=== PATIENT | female | born 1975 | race Caucasian/White ===

== ENCOUNTER 2016-03-21 00:06 | Emergency (ER) | payer MEDICARE, OTHER ==
[~2016-03-21] VITALS: Ht 170.2 cm; Wt 55.0 kg
[~2016-03-21 00:06] MED LIST: DIFL150T PO; PERC10TA27 PO
[2016-03-21] MEDS ORDERED: TETANUS/DIPHTHERIA TOXOID ADULT 0.5 ML VIAL IM ONE (00:15)
[2016-03-21] MEDS ORDERED: oxyCODONE/ACETAMINOPHEN 5 MG/325 MG TAB PO ONE (00:15)
[2016-03-21] MEDS ORDERED: SODIUM CHLORIDE 0.9% FLUSH 5 ML FLUSH IVF PRN (00:15)
[2016-03-21 00:20] VITALS: BP 126/74; PULSE 105; RESP 24; TEMP 98.8; O2SAT 97
[2016-03-21] MEDS ORDERED: NEUR800T PO (00:20)
[2016-03-21] MEDS ORDERED: PROP60TA PO (00:20)
[2016-03-21 00:34] LABS: AUTOMATED NEUTROPHIL # 7.4 TH/MM3 (1.8-7.7); BASOPHIL # 0.1 TH/MM3 (0-0.2); BASOPHIL % 0.6 % (0.0-2.0); EOSINOPHIL # 0.3 TH/MM3 (0-0.4); EOSINOPHIL % 3.2 % (0.0-4.0); HEMATOCRIT 38.9 % (35.0-46.0); HEMO FLAGS DIFF FINAL; LYMPH % 21.1 % (9.0-44.0); LYMPHOCYTE # 2.3 TH/MM3 (1.0-4.8); MEAN CELL VOLUME 98.5 FL (80.0-100.0); MEAN CORPUSCULAR HEMOGLOBIN 34.5 PG (27.0-34.0); MONO % 7.3 % (0.0-8.0); NEUT % 67.8 % (16.0-70.0); PLATELET COUNT 368 TH/MM3 (150-450); RED BLOOD COUNT 3.95 MIL/MM3 (4.00-5.30); RED CELL DISTRIBUTION WIDTH 13.1 % (11.6-17.2); WHITE BLOOD COUNT 10.9 TH/MM3 (4.0-11.0)
[2016-03-21 00:50] LABS: BICARBONATE 24.6 MEQ/L (21.0-32.0); POTASSIUM 3.7 MEQ/L (3.5-5.1)
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
[2016-03-21 02:31] VITALS: BP 128/79
== END 2016-03-21 05:51 | disposition home or self-care (01) ==
LOC: NEPC 00:06 → NEPF 05:51
DX: Z04.41 Encounter for examination and observation following alleged adult rape (principal); S01.412A Laceration without foreign body of left cheek and temporomandibular area, initial encounter; F10.120 Alcohol abuse with intoxication, uncomplicated; J45.909 Unspecified asthma, uncomplicated; Y04.2XXA Assault by strike against or bumped into by another person, initial encounter; Y09 Assault by unspecified means; Z23 Encounter for immunization; Z72.0 Tobacco use
CPT/HCPCS: 12011; 70450; 70486; 80048; 80320; 85025; 90471; 90714

== ENCOUNTER 2016-03-21 16:25 | Emergency (ER) | payer MEDICARE, OTHER ==
[~2016-03-21 16:25] MED LIST changes: +NEUR800T PO; +PROP60TA PO
[2016-03-21 16:49] VITALS: BP 118/77; PULSE 77; RESP 14; TEMP 99; O2SAT 98
[2016-03-21] MEDS ORDERED: ONDANSETRON ODT 4 MG TAB PO ONE (17:15)
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
[2016-03-21 19:45] VITALS: BP 119/61; PULSE 70; RESP 16; O2SAT 98
[2016-03-21] MEDS ORDERED: ACETAMINOPHEN 500 MG CPLT PO ONE (19:45)
[2016-03-21 19:59] LABS: AUTOMATED NEUTROPHIL # 2.8 TH/MM3 (1.8-7.7); BASOPHIL % 0.6 % (0.0-2.0); EOSINOPHIL # 0.1 TH/MM3 (0-0.4); EOSINOPHIL % 1.9 % (0.0-4.0); HEMATOCRIT 41.3 % (35.0-46.0); HEMO FLAGS DIFF FINAL; LYMPH % 30.9 % (9.0-44.0); LYMPHOCYTE # 1.5 TH/MM3 (1.0-4.8); MEAN CELL VOLUME 99.1 FL (80.0-100.0); MEAN CORPUSCULAR HEMOGLOBIN 33.3 PG (27.0-34.0); MEAN CORPUSCULAR HGB CONC 33.6 % (32.0-36.0); MONO % 12.6 % (0.0-8.0); PLATELET COUNT 378 TH/MM3 (150-450); RED BLOOD COUNT 4.16 MIL/MM3 (4.00-5.30)
[2016-03-21] MEDS ORDERED: LEVONORGESTREL (EMERGENCY OC) 1.5 MG TAB ONE (22:56)
[2016-03-21] MEDS ORDERED: DOXYCYCLINE HYCLATE 100 MG TAB ONE (22:56)
[2016-03-21] MEDS ORDERED: AZITHROMYCIN 250 MG TAB ONE (22:57)
[2016-03-21] MEDS ORDERED: cefTRIAXone 250 MG VIAL ONE (22:57)
[2016-03-21] MEDS ORDERED: LIDOCAINE HCL 1% PF 2 ML VIAL ONE (22:59)
[2016-03-21 23:15] VITALS: BP 94/64; PULSE 70; RESP 14; O2SAT 98
--- NOTE | 2016-03-22 18:21 | EKG ---
Date Performed: 03/21/2016 Time Performed: 17:05:12 PTAGE: 40 years EKG: Sinus rhythm Possible septal infarct - age undetermined Abnormal ECG PREVIOUS TRACING : 05/03/2015 11.43 DOCTOR: Rogelio Lyle Interpretating Date/Time 03/22/2016 18:21:11
== END 2016-03-21 23:38 | disposition home or self-care (01) ==
LOC: PHED 16:25
DX: Z04.41 Encounter for examination and observation following alleged adult rape (principal); R94.31 Abnormal electrocardiogram [ECG] [EKG]; R07.9 Chest pain, unspecified; I50.9 Heart failure, unspecified; Z95.0 Presence of cardiac pacemaker; I25.2 Old myocardial infarction; S01.412A Laceration without foreign body of left cheek and temporomandibular area, initial encounter; F10.120 Alcohol abuse with intoxication, uncomplicated; J45.909 Unspecified asthma, uncomplicated; Y04.2XXA Assault by strike against or bumped into by another person, initial encounter; Y09 Assault by unspecified means; Z23 Encounter for immunization; Z72.0 Tobacco use
CPT/HCPCS: 12011; 70450; 70486; 71010; 80048; 80320; 85025; 90471; 90714; 93005; 99285; J0696

== ENCOUNTER 2016-07-21 19:12 | Emergency (ER) | payer MEDICARE, OTHER ==
[~2016-07-21 19:12] MED LIST changes: -DIFL150T PO; -PERC10TA27 PO
[2016-07-21 19:13] VITALS: BP 122/83; PULSE 112; RESP 20; TEMP 98.9; O2SAT 97
--- NOTE | 2016-07-21 19:18 | PD ---
Physical Exam Date Seen by Provider: Jul 21, 2016 Time Seen by Provider: 19:52 Data Data Last Documented VS Vital Signs Date Time Temp Pulse Resp B/P Pulse Ox O2 Delivery O2 Flow Rate FiO2 07/21/16 19:13 98.9 112 20 122/83 97 Room Air [facility] Supervised Visit with ED: No Narrative Course 40 YO F with complaint of 10/10 abdominal pain and vaginal bleeding x ~24 hours. Denies N/V. States "feels like when I had an ectopic." Vitals reviewed. Awaiting bed placement. Desi Mcleod Jul 21, 2016 19:18
[2016-07-21 20:55] VITALS: BP 116/79; PULSE 83; RESP 18; TEMP 99.1; O2SAT 100
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
[2016-07-21] MEDS ORDERED: ONDANSETRON HCL 4 MG/2 ML VIAL IVP ONE (21:00)
[2016-07-21] MEDS ORDERED: SODIUM CHLORIDE 0.9% FLUSH 10 ML FLUSH IV FLUSH PRN (21:00)
[2016-07-21] MEDS ORDERED: MORPHINE SULFATE 4 MG/ML INJ IV PUSH ONE (21:00)
[2016-07-21] MEDS ORDERED: SODIUM CHLORID 0.9% 500 ML INJ 500 ML IV ONE ×2 (21:00→23:45)
[2016-07-21 21:32] LABS: AUTOMATED NEUTROPHIL # 12.5 TH/MM3 (1.8-7.7); BASOPHIL # 0.1 TH/MM3 (0-0.2); BASOPHIL % 0.7 % (0.0-2.0); EOSINOPHIL # 0.4 TH/MM3 (0-0.4); EOSINOPHIL % 2.6 % (0.0-4.0); HEMO FLAGS DIFF FINAL; LYMPH % 12.7 % (9.0-44.0); MEAN CELL VOLUME 97.3 FL (80.0-100.0); MEAN CORPUSCULAR HEMOGLOBIN 34.3 PG (27.0-34.0); MEAN CORPUSCULAR HGB CONC 35.2 % (32.0-36.0); MONO % 6.6 % (0.0-8.0); NEUT % 77.4 % (16.0-70.0); PLATELET COUNT 486 TH/MM3 (150-450); RED BLOOD COUNT 4.73 MIL/MM3 (4.00-5.30); RED CELL DISTRIBUTION WIDTH 13.3 % (11.6-17.2); WHITE BLOOD COUNT 16.1 TH/MM3 (4.0-11.0)
[2016-07-21 21:41] LABS: BLOOD, URINE NEG (NEG); COMMENT (UR) CULT NOT INDICATED; CULTURE IF INDICATED CULT NOT INDICATED; GLUCOSE,URINE NEG (NEG); KETONE, URINE NEG (NEG); MUCUS URINE MANY /lpf (OCC); NITRITE,URINE NEG (NEG); PH, URINE 5.5 (5.0-8.5); URINE COLOR YELLOW (YELLW/STRAW)
[2016-07-21] MEDS ORDERED: HYDROmorphone HCL PF 1 MG/ML VIAL IV PUSH ONE ×2 (21:45→23:30)
[2016-07-21 21:49] LABS: ANION GAP 9 MEQ/L (5-15); AST (GOT) 14 U/L (15-37); BICARBONATE 26.5 MEQ/L (21.0-32.0); BLOOD UREA NITROGEN 14 MG/DL (7-18); CHLORIDE 103 MEQ/L (98-107); GLOMERULAR FILTRATION RATE 66 ML/MIN (>89); SODIUM (NA) 138 MEQ/L (136-145)
[2016-07-21 21:57] LABS: ALKALINE PHOSPHATASE 85 U/L (45-117); ALT (GPT) 18 U/L (10-53); TOTAL BILIRUBIN ADULT 0.7 MG/DL (0.2-1.0)
--- NOTE | 2016-07-21 21:57 | PD ---
Physical Exam Narrative I, Dr. Duenas, have reviewed the advance practice practitioner's documentation and am in agreement, met with the patient face to face, made the diagnosis, and the medical decision making was done by me. *My assessment and Findings: Chronic abdominal pain vs. gastroparesis vs. diverticulitis vs. pancreatitis 40yo F with abdominal pain since yesterday. Pt has multiple medical problems and has frequent GI follow up. Abdominal exam showed diffuse tenderness but more on left lower abdomen. Urine negative. Labs reviewed, leukocytosis at 16.1. Lipase normal. UA showed no leukocyte or nitrite. Pt initially tachycardic at 112bpm but heart rate is now 83bpm. Pt given morphine 4mg IV which helped with pain but caused her to be nauseous so zofran 4mg IV given. Pt is still in a lot of pain so dilaudid 0.5mg x2 IV given. BP was low after morphine so NS IVF given. Pt reevaluated at bedside and states the dilaudid resolved the pain. Pt is nontoxic appearing and denies any fever or nausea or vomiting. Pt is lying comfortably in bed. Pt has chronic abdominal issues and has good outpatient follow up. CTa/p showed mild biliary ductal dilatation post previous cholecystectomy. This may be reservoir affect. Mild basilar lung atelectasis or scarring. Pt follows with Dr. Reddy from GI and can follow up with him as outpatient. Pt tolerating PO. Return precautions given. Data Data Last Documented VS Vital Signs Date Time Temp Pulse Resp B/P Pulse Ox O2 Delivery O2 Flow Rate FiO2 07/22/16 00:18 69 18 100/86 98 Room Air 07/21/16 20:55 99.1 Orders Complete Blood Count With Diff (07/21/16 20:49) Comprehensive Metabolic Panel (07/21/16 20:49) Lipase (07/21/16 20:49) Urinalysis - C+S If Indicated (07/21/16 20:49) Ct Abd/Pel W Iv Contrast(Rout) (07/21/16 20:49) Iv Access Insert/Monitor (07/21/16 20:49) Ecg Monitoring (07/21/16 20:49) Oximetry (07/21/16 20:49) Morphine Inj (Morphine Inj) (07/21/16 21:00) Ondansetron Inj (Zofran Inj) (07/21/16 21:00) Sodium Chloride 0.9% Flush (Ns Flush) (07/21/16 21:00) Sodium Chlorid 0.9% 500 Ml Inj (Ns 500 M (07/21/16 21:00) Ed Urine Pregnancytest Poc (07/21/16 20:49) Hydromorphone Pf Inj (Dilaudid Pf Inj) (07/21/16 21:45) Iohexol 350 Inj (Omnipaque 350 Inj) (07/21/16 22:38) Hydromorphone Pf Inj (Dilaudid Pf Inj) (07/21/16 23:30) Sodium Chlorid 0.9% 500 Ml Inj (Ns 500 M (07/21/16 23:45) Labs Laboratory Tests Test 07/21/16 07/21/16 20:40 20:57 Urine Color YELLOW Urine Turbidity CLEAR Urine pH 5.5 Urine Specific [place] 1.031 Urine Protein TRACE mg/dL Urine Glucose (UA) NEG mg/dL Urine Ketones NEG mg/dL Urine Occult Blood NEG Urine Nitrite NEG Urine Bilirubin NEG Urine Urobilinogen LESS THAN 2.0 MG/DL Urine Leukocyte Esterase NEG Urine RBC LESS THAN 1 /hpf Urine WBC LESS THAN 1 /hpf Urine Mucus MANY /lpf Microscopic Urinalysis Comment CULT NOT INDICATED White Blood Count 16.1 TH/MM3 Red Blood Count 4.73 MIL/MM3 Hemoglobin 16.2 GM/DL Hematocrit 46.0 % Mean Corpuscular Volume 97.3 FL Mean Corpuscular Hemoglobin 34.3 PG Mean Corpuscular Hemoglobin 35.2 % Concent Red Cell Distribution Width 13.3 % Platelet Count 486 TH/MM3 Mean Platelet Volume 7.2 FL Neutrophils (%) (Auto) 77.4 % Lymphocytes (%) (Auto) 12.7 % Monocytes (%) (Auto) 6.6 % Eosinophils (%) (Auto) 2.6 % Basophils (%) (Auto) 0.7 % Neutrophils # (Auto) 12.5 TH/MM3 Lymphocytes # (Auto) 2.0 TH/MM3 Monocytes # (Auto) 1.1 TH/MM3 Eosinophils # (Auto) 0.4 TH/MM3 Basophils # (Auto) 0.1 TH/MM3 CBC Comment DIFF FINAL Differential Comment Sodium Level 138 MEQ/L Potassium Level 4.0 MEQ/L Chloride Level 103 MEQ/L Carbon Dioxide Level 26.5 MEQ/L Anion Gap 9 MEQ/L Blood Urea Nitrogen 14 MG/DL Creatinine 0.93 MG/DL Estimat Glomerular Filtration 66 ML/MIN Rate Random Glucose 61 MG/DL Calcium Level 9.2 MG/DL Total Bilirubin 0.7 MG/DL Aspartate Amino Transf 14 U/L (AST/SGOT) Alanine Aminotransferase 18 U/L (ALT/SGPT) Alkaline Phosphatase 85 U/L Total Protein 8.1 GM/DL Albumin 4.3 GM/DL Lipase 259 U/L [facility] Supervised Visit with ED: Yes Diagnosis Primary Impression: Abdominal pain Qualified Code: R10.84 - Generalized abdominal pain Patient Instructions: General Instructions Departure Forms: Tests/Procedures Additional Instruction: Please follow up with your GI physician in 1-2 days. Return to the ED if symptoms worsen. Med/Other Pt SpecificInfo: Prescription(s) given Scripts Acetaminophen (Tylenol)325 Mg [id number] Mg PO Q6H PRN (PAIN SCALE 1 TO 4) #20 TAB Ref 0 Prov:Rut Duenas DO 07/21/16 Disposition: 01 DISCHARGE HOME Condition: Stable Rut Duenas DO Jul 21, 2016 21:57
[2016-07-21 22:18] VITALS: BP 97/59; PULSE 69; RESP 18; O2SAT 99
[2016-07-21] MEDS ORDERED: IOHEXOL 350 MG/ML 10 ML VIAL (for RAD DIAG) IV ONE (22:38)
--- NOTE | 2016-07-21 22:54 | RADRPT ---
EXAM DATE/TIME: 07/21/2016 22:35 [facility] COMPARISON: No previous studies available for comparison. INDICATIONS : Epigastric pain with vomitting. IV CONTRAST: 80 cc Omnipaque 350 (iohexol) IV ORAL CONTRAST: No oral contrast ingested. RADIATION DOSE: 4.73 CTDIvol (mGy) MEDICAL HISTORY : Pancreatitis. Gastroparesis. hernia repair SURGICAL HISTORY : Cholecystectomy. Appendectomy.Pacemaker. ENCOUNTER: Initial ACUITY: 1 day PAIN SCALE: 10/10 LOCATION: upper quadrant TECHNIQUE: Volumetric scanning of the abdomen and pelvis was performed. Using automated exposure control and ad justment of the mA and/or kV according to patient size, radiation dose was kept as low as reasonably achievable to obtain optimal diagnostic quality images. FINDINGS: LOWER LUNGS: Mild scarring or atelectasis in the posterior lung bases. LIVER: Mild intra-and extrahepatic biliary ductal dilatation post previous cholecystectomy with common duct diameter slightly exceeding 1 cm. No evidence of focal liver mass.SPLEEN: Normal size without lesion. PANCREAS: Slight prominence of the pancreatic duct. No evidence of pancreatic parenchymal mass. KIDNEYS: Normal in size and shape. There is no mass, stone or hydronephrosis. ADRENAL GLANDS: Within normal limits. VASCULAR: There is no aortic aneurysm. Left gonadal vein varices. BOWEL/MESENTERY: The stomach, small bowel, and colon demonstrate no acute abnormality. There is no free intraperitone al air or fluid. ABDOMINAL WALL: Within normal limits. RETROPERITONEUM: There is no lymphadenopathy. BLADDER: No wall thickening or mass. REPRODUCTIVE: Within normal limits. INGUINAL: There is no lymphadenopathy or hernia. MUSCULOSKELETAL: Within normal limits for patient age. CONCLUSION: Mild biliary ductal dilatation post previous cholecystectomy. This may be reservoir affect. Mild basilar lung atelectasis or scarring. Nikolas Delgado MD on July 21, 2016 at 22:49 Board Certified Radiologist. This report was verified electronically.
[2016-07-21] MEDS ORDERED: TYLE325T PO (23:22)
[2016-07-21 23:36] VITALS: BP 90/58; PULSE 69; RESP 18; O2SAT 100
[2016-07-22 00:18] VITALS: BP 100/86; PULSE 69; RESP 18; O2SAT 98
== END 2016-07-22 00:39 | disposition home or self-care (01) ==
LOC: NEPE 19:12
DX: R10.84 Generalized abdominal pain (principal); R00.0 Tachycardia, unspecified; F17.210 Nicotine dependence, cigarettes, uncomplicated; M79.7 Fibromyalgia; Z90.49 Acquired absence of other specified parts of digestive tract
CPT/HCPCS: 74177; 80053; 81001; 83690; 84703; 85025; 96374; 96375; 96376; 99285; J1170; J2270; J2405; J7040; Q9967

== ENCOUNTER 2017-02-22 12:06 | Inpatient (IN) | payer MEDICARE, OTHER ==
[~2017-02-22] VITALS: Ht 160 cm; Wt 50.0 kg
[2017-02-22] VITALS (8 sets, daily range): BP systolic 90–102; BP diastolic 58–65; PULSE 73–90; RESP 16; TEMP 98.6–98.9; O2SAT 99
[~2017-02-22 12:06] MED LIST changes: +TYLE325T PO
[2017-02-22] MEDS ORDERED: SODIUM CHLOR 0.9% 1000 ML INJ 1,000 ML IV SCH (13:00)
[2017-02-22] MEDS ORDERED: ONDANSETRON HCL 4 MG/2 ML VIAL IV PUSH ONE (13:00)
--- NOTE | 2017-02-22 13:05 | PD ---
HPI Chief Complaint: Abdominal Pain Time Seen by Provider: 12:43 Travel History International Travel<30 days: No Contact w/Intl Traveler<30days: No Traveled to known affect area: No History of Present Illness HPI This 41-year-old female is complaining of abdominal pain. She says he been having the pain for several days. It was worse this morning. He has had some intermittent vomiting. She says is February 05 she had pain and has a knot believes she was disimpacted in the hospital. She subsequently vomited blood and went to a hospital again and ended up having surgery. She believes she was released from the hospital 4 days ago. She has a pacemaker in place. She has history of ectopic . She says she has not and has not been sexually active for some time. She has noted that her left leg is swollen and she is having some left lower quadrant pain. She has a history of diverticular lites. 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") Psychiatric: Yes (PANIC ATTACKS) Immunizations Current: No Migraines: Yes Myocardial Infarction: Yes (AGE 17) Pancreatitis: Yes Thyroid Disease: Yes Tetanus Vaccination: < 5 Years Influenza Vaccination: No ?: Not LMP: 1 week ago : 9 Para: 7 : 2 Ectopic : Yes Dilation and Curettage (D&C): Yes Tubal Ligation: Yes (2006) Past Surgical History Abdominal Surgery: Yes (R HERNIA REPAIR 08/08/07, bowel blockage 02/06/17, repair of adhesions ) Appendectomy: Yes Section: Yes (X1) Cholecystectomy: Yes (2009) Pacemaker: Yes (pt states have pacemaker) Other Surgery: Yes (RIGHT HERNIA REPAIR, LYMPH NODE REMOVED) Family History Family Myocardial Infarction: Yes (BROTHER AT THE AGE OF 17) Social History Alcohol Use: Yes (RARE ) Tobacco Use: Yes (now 2 cigs per day states hx of 2 ppd for 20+yrs) Substance Use: No Allergies-Medications (Allergen,Severity, Reaction): Coded Allergies: Sulfa (Sulfonamide Antibiotics) (Unverified Allergy, Severe, rash, 02/22/17 ) diclofenac (Unverified Allergy, Severe, 02/22/17) pancreatitis etodolac (Unverified Allergy, Severe, 02/22/17) pancreatitis flurbiprofen (Unverified Allergy, Severe, 02/22/17) pancreatitis ibuprofen (Unverified Allergy, Severe, 02/22/17) pancreatitis indomethacin (Unverified Allergy, Severe, 02/22/17) pancreatitis ketoprofen (Unverified Allergy, Severe, 02/22/17) pancreatitis ketorolac (Unverified Allergy, Severe, 02/22/17) pancreatitis naproxen (Unverified Allergy, Severe, 02/22/17) pancreatitis oxaprozin (Unverified Allergy, Severe, 02/22/17) pancreatitis penicillin G (Unverified Allergy, Severe, sob, 02/22/17) NSAIDS (Non-Steroidal Anti-Inflamma (Verified Allergy, Intermediate, STATE PANCREATITIS, 02/22/17) Reported Meds & Prescriptions Reported Meds & Active Scripts Active Tylenol (Acetaminophen) 325 Mg Tab 650 Mg PO Q6H PRN Reported Ambien (Zolpidem Tartrate) 10 Mg Tab 10 Mg PO HS PRN Oxycodone (Oxycodone HCl) 10 Mg Tab 10 Mg PO [id number] PRN Midodrine 10 Mg Tab 10 Mg PO TID PRN Topamax (Topiramate) 100 Mg Tab 100 Mg PO BID Neurontin (Gabapentin) 800 Mg Tab 800 Mg PO QID Propranolol (Propranolol HCl) 60 Mg Tab 60 Mg PO BID Review of Systems General / Constitutional: Positive: Fever, Chills Eyes: No: Diploplia, Blurred Vision HENT: No: Headaches, Vertigo Cardiovascular: No: Chest Pain or Discomfort, Palpitations Respiratory: No: Cough, Shortness of Breath Gastrointestinal: Positive: Nausea, Vomiting, Diarrhea, Abdominal Pain Genitourinary: No: Urgency, Frequency Musculoskeletal: No: Arthralgias Skin: No Rash, No Itching Neurologic: No: Weakness Physical Exam Narrative GENERAL: Thin female complaining of pain SKIN: Focused skin assessment warm/dry. HEAD: Atraumatic. Normocephalic. EYES: Pupils equal and round. No scleral icterus. No injection or drainage. ENT: No nasal bleeding or discharge. Mucous membranes pink and moist. NECK: Trachea midline. No JVD. CARDIOVASCULAR: Regular rate and rhythm. No murmur appreciated. RESPIRATORY: No accessory muscle use. Clear to auscultation. Breath sounds equal bilaterally. GASTROINTESTINAL: Abdomen distended. Bowel sounds are diminished. sHe is diffusely tender. I don't feel any discrete masses MUSCULOSKELETAL: There is some soft tissue swelling of the left leg. She is tender in the inguinal area on the left NEUROLOGICAL: Awake and alert. No obvious cranial nerve deficits. Motor grossly within normal limits. Normal speech. PSYCHIATRIC: Patient is extremely anxious and agitated at times Data Data Last Documented VS Vital Signs Date Time Temp Pulse Resp B/P (MAP) Pulse Ox O2 Delivery O2 Flow Rate FiO2 02/22/17 15:33 16 02/22/17 15:30 80 100/59 (73) 99 Room Air 02/22/17 12:31 98.9 Orders Orders Complete Blood Count With Diff (02/22/17 12:52) Comprehensive Metabolic Panel (02/22/17 12:52) Lipase (02/22/17 12:52) Lactic Acid (02/22/17 12:52) Urinalysis - C+S If Indicated (02/22/17 12:52) Ct Abd/Pel W Iv Contrast(Rout) (02/22/17 12:52) Iv Access Insert/Monitor (02/22/17 12:52) Ecg Monitoring (02/22/17 12:52) Oximetry (02/22/17 12:52) Sodium Chloride 0.9% Flush (Ns Flush) (02/22/17 13:00) Chest, Single Ap (02/22/17 12:52) Sodium Chlor 0.9% 1000 Ml Inj (Ns 1000 M (02/22/17 13:00) Ondansetron Inj (Zofran Inj) (02/22/17 13:00) Ed Urine Pregnancytest Poc (02/22/17 12:52) Us Leg Venous Doppler (02/22/17 13:00) Morphine Inj (Morphine Inj) (02/22/17 13:15) Morphine Inj (Morphine Inj) (02/22/17 13:15) Morphine Inj (Morphine Inj) (02/22/17 14:15) Morphine Inj (Morphine Inj) (02/22/17 14:15) Iohexol 350 Inj (Omnipaque 350 Inj) (02/22/17 14:51) Cefepime Inj (Maxipime Inj) (02/22/17 15:00) Blood Culture (02/22/17 15:06) Place Ng Tube To Low Intermit (02/22/17 15:16) Ns + Kcl 20 Meq Inj (Ns + Kcl 20 Meq Inj (02/22/17 15:30) Lorazepam Inj (Ativan Inj) (02/22/17 15:30) Consult General Surgery (02/22/17 ) Admit Order (Ed Use Only) (02/22/17 15:43) Labs Laboratory Tests Test 02/22/17 13:00 02/22/17 13:55 White Blood Count 17.3 TH/MM3 Red Blood Count 4.29 MIL/MM3 Hemoglobin 13.6 GM/DL Hematocrit 42.1 % Mean Corpuscular Volume 98.1 FL Mean Corpuscular Hemoglobin 31.8 PG Mean Corpuscular Hemoglobin Concent 32.4 % Red Cell Distribution Width 13.7 % Platelet Count 785 TH/MM3 Mean Platelet Volume 7.0 FL Neutrophils (%) (Auto) 82.5 % Lymphocytes (%) (Auto) 10.6 % Monocytes (%) (Auto) 5.6 % Eosinophils (%) (Auto) 0.7 % Basophils (%) (Auto) 0.6 % Neutrophils # (Auto) 14.3 TH/MM3 Lymphocytes # (Auto) 1.8 TH/MM3 Monocytes # (Auto) 1.0 TH/MM3 Eosinophils # (Auto) 0.1 TH/MM3 Basophils # (Auto) 0.1 TH/MM3 CBC Comment AUTO DIFF Differential Comment AUTO DIFF CONFIRMED Platelet Estimate HIGH Platelet Morphology Comment HYPOGRAN Blood Urea Nitrogen 5 MG/DL Creatinine 0.46 MG/DL Random Glucose 76 MG/DL Total Protein 7.0 GM/DL Albumin 3.0 GM/DL Calcium Level 8.1 MG/DL Alkaline Phosphatase 79 U/L Aspartate Amino Transf (AST/SGOT) 25 U/L Alanine Aminotransferase (ALT/SGPT) 27 U/L Total Bilirubin 0.6 MG/DL Sodium Level 139 MEQ/L Potassium Level 3.5 MEQ/L Chloride Level 106 MEQ/L Carbon Dioxide Level 23.3 MEQ/L Anion Gap 10 MEQ/L Estimat Glomerular Filtration Rate 148 ML/MIN Lactic Acid Level 1.2 mmol/L Lipase 227 U/L Urine Collection Type CLEAN CATCH Urine Color STRAW Urine Turbidity SLIGHT Urine pH 6.0 Urine Specific [place] 1.025 Urine Protein 300 OR GREATER mg/dL Urine Glucose (UA) NEG mg/dL Urine Ketones 15 mg/dL Urine Occult Blood MOD Urine Nitrite NEG Urine Bilirubin NEG Urine Leukocyte Esterase NEG Urine RBC 10-14 /hpf Urine WBC 0-2 /hpf Urine Squamous Epithelial Cells 0-5 /hpf Urine Bacteria OCC /hpf Urine Yeast with Hyphae MOD Microscopic Urinalysis Comment CULT NOT INDICATED Urine Collection Time 13:55 MDM Medical Decision Making Medical Screen Exam Complete: Yes Emergency Medical Condition: Yes Medical Record Reviewed: Yes Differential Diagnosis Differential includes bowel obstruction, gastroenteritis, peritonitis, postoperative ileus Narrative Course Hemoglobin is 13 with a white count of 17,000. CT scan of the abdomen and pelvis was obtained. Dr. Villareal has called me with the results. He says that since the scan of July of 2016 she has developed ascites and small bowel dilatation with scattered air-fluid levels. He does not see an abscess. He is concerned about possible deterioration I have discussed the case with on-call surgery and they recommend admission to the main hospital. NG tube will be placed. I have ordered some Ativan as the patient is extremely anxious Diagnosis Primary Impression: Abdominal pain Admitting Information Admitting Physician Requests: Admit Daryl Nick MD Feb 22, 2017 13:05
[2017-02-22] MEDS ORDERED: MORPHINE SULFATE 2 MG/ML INJ IV PUSH ONE ×4 (13:15→14:15)
[2017-02-22 13:18] LABS: AUTOMATED NEUTROPHIL # 14.3 TH/MM3 (1.8-7.7); BASOPHIL # 0.1 TH/MM3 (0-0.2); BASOPHIL % 0.6 % (0.0-2.0); EOSINOPHIL # 0.1 TH/MM3 (0-0.4); EOSINOPHIL % 0.7 % (0.0-4.0); HEMATOCRIT 42.1 % (35.0-46.0); HEMOGLOBIN 13.6 GM/DL (11.6-15.3); LYMPH % 10.6 % (9.0-44.0); LYMPHOCYTE # 1.8 TH/MM3 (1.0-4.8); MEAN CELL VOLUME 98.1 FL (80.0-100.0); MEAN CORPUSCULAR HEMOGLOBIN 31.8 PG (27.0-34.0); MEAN CORPUSCULAR HGB CONC 32.4 % (32.0-36.0); MONO % 5.6 % (0.0-8.0); NEUT % 82.5 % (16.0-70.0); PLATELET COUNT 785 TH/MM3 (150-450); RED BLOOD COUNT 4.29 MIL/MM3 (4.00-5.30); RED CELL DISTRIBUTION WIDTH 13.7 % (11.6-17.2); WHITE BLOOD COUNT 17.3 TH/MM3 (4.0-11.0)
[2017-02-22] MEDS ORDERED: TOPI100 PO (13:35)
[2017-02-22 13:37] LABS: CHLORIDE 106 MEQ/L (98-107); SODIUM (NA) 139 MEQ/L (136-145)
[2017-02-22] MEDS ORDERED: MIDO10TA PO (13:38)
--- NOTE | 2017-02-22 13:38 | RADRPT ---
EXAM DATE/TIME: 02/22/2017 13:11 [facility] COMPARISON: No previous studies available for comparison. INDICATIONS : Left leg pain and swelling. MEDICAL HISTORY : Gastroesophageal reflux disease. Pancreatitis. Migraine. Cardiac disorder. Heart attack. Gastropa resis. Diverticulitis. Arthritis. Stomach cancer. Lupus. SURGICAL HISTORY : Pacemaker. Appendectomy. Cholecystectomy. Hernia repair. Bowel blockage repair. Surgery for adhesion s. section. Dilation and curettage. Tubal ligation. ENCOUNTER: Initial ACUITY: 1 day PAIN SCORE: 8/10 LOCATION: Left leg. TECHNIQUE: Venous ultrasound of the leg was performed from the inguinal ligament to the proximal calf. Real-naveed e, color Doppler and spectral tracing, compression and augmentation techniques were used. FINDINGS: There is normal compressibility of the deep venous system from the inguinal region to the proximal ca lf. No echogenic clot is seen in the lumen of the common femoral, femoral, popliteal, and posterior tibial veins. There is a normal response of the venous system to proximal and distal augmentation an d respiration. CONCLUSION: Negative for deep venous thrombosis. Abrahan Villareal MD FACR on February 22, 2017 at 13:35 Board Certified Radiologist. This report was verified electronically.
[2017-02-22] MEDS ORDERED: AMBI10TA PO (13:40)
[2017-02-22] MEDS ORDERED: OXYC-395 PO (13:40)
[2017-02-22 13:42] LABS: BICARBONATE 23.3 MEQ/L (21.0-32.0); CALCIUM 8.1 MG/DL (8.5-10.1); GLUCOSE,RANDOM 76 MG/DL (74-106); LIPASE 227 U/L (73-393)
[2017-02-22 13:43] LABS: BLOOD UREA NITROGEN 5 MG/DL (7-18)
[2017-02-22 13:45] LABS: ALT (GPT) 27 U/L (10-53); AST (GOT) 25 U/L (15-37); CREATININE 0.46 MG/DL (0.50-1.00); GLOMERULAR FILTRATION RATE 148 ML/MIN (>89)
[2017-02-22 13:47] LABS: TOTAL BILIRUBIN ADULT 0.6 MG/DL (0.2-1.0)
[2017-02-22 13:48] LABS: ALKALINE PHOSPHATASE 79 U/L (45-117)
[2017-02-22 14:06] LABS: BILIRUBIN, URINE NEG (NEG); BLOOD, URINE MOD (NEG); GLUCOSE,URINE NEG (NEG); KETONE, URINE 15 mg/dL (NEG); NITRITE,URINE NEG (NEG); URINE LEUKOCYTE ESTERASE NEG (NEG)
[2017-02-22 14:11] LABS: URINE COLOR STRAW (YELLW/STRAW)
[2017-02-22 14:12] LABS: WBC, URINE 0-2 /hpf (0-5)
[2017-02-22 14:13] LABS: SQUAMOUS EPITHELIAL CELL URINE 0-5 /hpf (0-5)
[2017-02-22 14:14] LABS: BACTERIA, URINE OCC /hpf
[2017-02-22] MEDS: SODIUM CHLORIDE 0.9% FLUSH 10 ML FLUSH IV FLUSH PRN ×4 (14:27→16:40)
[2017-02-22] MEDS ORDERED: IOHEXOL 350 MG/ML 10 ML VIAL (for RAD DIAG) IVCONTRAST ONE (14:51)
--- NOTE | 2017-02-22 14:56 | RADRPT ---
EXAM DATE/TIME: 02/22/2017 14:35 [facility] COMPARISON: CT ABDOMEN & PELVIS W CONTRAST, July 21, 2016, 22:35. INDICATIONS : Left lower quadrant pain. Intermittent nausea and vomiting. IV CONTRAST: 80 cc Omnipaque 350 (iohexol) IV ORAL CONTRAST: No oral contrast ingested. RADIATION DOSE: 5.46 CTDIvol (mGy) MEDICAL HISTORY : Gastroesophageal reflux disease. Diverticulosis. Gastroparesis.Pancreatitis. Asthma. Cardiovascular disease. Hiatal hernia. SURGICAL HISTORY : Appendectomy. Inguinal hernia repair.Cholecystectomy.Pacemaker. Tubal ligation. ENCOUNTER: Initial ACUITY: 2 weeks PAIN SCALE: 10/10 LOCATION: Left lower quadrant TECHNIQUE: Volumetric scanning of the abdomen and pelvis was performed. Using automated exposure control and ad justment of the mA and/or kV according to patient size, radiation dose was kept as low as reasonably achievable to obtain optimal diagnostic quality images. DICOM format image data is available electro nically for review and comparison. FINDINGS: Lung base is are clear. The liver and spleen are unremarkable The common bile duct is dilated into the head of the pancreas. I don't see pancreatic mass. Common duct is dilated to 1.6 cm. Trace ascites is evident with gaseous distention of probably small bowel. Zone of transition is not identified. There is solid stool in the colon extending down into the pelv is. I don't see an intra-abdominal abscess. I don't see free air. CONCLUSION: Deterioration when compared to 07/21/16 the trace ascites and small bowel dilatation with scattered air fluid levels. I do not see an abscess. No untoward process in the pelvis cannot be excluded. Abrahan Villareal MD FACR on February 22, 2017 at 14:48 Board Certified Radiologist. This report was verified electronically.
[2017-02-22] MEDS ORDERED: CEFEPIME INJ 2,000 MG in SODIUM CHLORIDE 0.9% INJ 100 ML IV ONE (15:00)
--- NOTE | 2017-02-22 15:14 | RADRPT ---
EXAM DATE/TIME: 02/22/2017 13:42 [facility] COMPARISON: CHEST SINGLE AP, March 21, 2016, 17:18. INDICATIONS : Short of breath. Chest pain MEDICAL HISTORY : Myocardial infarction. Asthma SURGICAL HISTORY : Pacemaker. Loop recorder ENCOUNTER: Initial ACUITY: 1 day PAIN SCORE: 10/10 LOCATION: Bilateral chest FINDINGS: A single view of the chest demonstrates the lungs to be symmetrically aerated without evidence of mas s, infiltrate or effusion. Stable dual-lead pacemaker in place. The cardiomediastinal contours are u nremarkable. Osseous structures are intact. CONCLUSION: 1. No acute abnormality or significant interval change. Ted Pimentel MD on February 22, 2017 at 15:11 Board Certified Radiologist. This report was verified electronically.
[2017-02-22] MEDS ORDERED: NS + KCL 20 MEQ INJ 1,000 ML IV ONE (15:30)
[2017-02-22] MEDS ORDERED: LORazepam 2 MG/ML VIAL IV PUSH ONE ×2 (15:30→21:45)
[2017-02-22] MEDS ORDERED: LACTULOSE SYRUP 20 GM/30 ML CUP PO PRN (17:00)
[2017-02-22] MEDS ORDERED: SENNOSIDES 8.6 MG TAB PO PRN (17:00)
[2017-02-22] MEDS ORDERED: MAGNESIUM HYDROXIDE SUSP 30 ML CUP PO PRN (17:00)
[2017-02-22] MEDS ORDERED: SODIUM CHLORIDE 0.9% FLUSH 10 ML FLUSH IV FLUSH PRN (17:00)
[2017-02-22] MEDS ORDERED: NALOXONE HCL 0.4 MG/ML AMP IV PUSH PRN (17:00)
[2017-02-22] MEDS ORDERED: BISACODYL 10 MG SUPP RECTAL PRN (17:00)
[2017-02-22] MEDS ORDERED: ONDANSETRON HCL 4 MG/2 ML VIAL IVP PRN (17:00)
--- NOTE | 2017-02-22 17:54 | HHI.HP ---
[facility] Mini Bobby MD Admission Diagnosis ABDOMINAL PAIN Diagnoses: (1) Abdominal pain Chief Complaint: Intractable Abdominal pain Travel History International Travel<30 Days: No Contact w/Intl Traveler <30 Da: No Traveled to Known Affected Are: No History of Present Illness This is a 41-year-old female patient with a known medical history of diverticulitis, stage I stomach cancer, gastroparesis, Lupus and anxiety who presented to the ED with complaints of intractable abdominal pain, nausea and vomiting 2 weeks. Patient states that since February 04 and she has been experiencing lower abdominal pain and inability to tolerate PO intake. She states that the pain is located in her mid-umbilical area and is characteristic of a stabbing type pain, rated a ten out of ten on pain scale, worsens with activity and movement. Patient states that she has been prescribed oxycodone for the abdominal pain which seems to help intermittently. Does admit to subjective fevers and chills at home, doesn't remember exactly how high. She does admit to positive bowel movements, diarrhea and presence of black stool. Last BM was this a.m. Patient states that her abdomen has been progressively getting more distended, with worsening symptoms for the last four days. He states she has not ate or drank anything for the last four days well. Patient does admit to a history of polyps and diverticulitis. Follows with Dr. Hernandez and in the outpatient setting. Last underwent a EGD and colonoscopy one half years ago which was reportedly negative. Review of Systems Constitutional: COMPLAINS OF: Fever, Chills, DENIES: Fatigue Eyes: DENIES: Blurred vision, Diplopia Respiratory: COMPLAINS OF: Shortness of breath, DENIES: Cough Cardiovascular: DENIES: Chest pain Gastrointestinal: COMPLAINS OF: Abdominal pain, Black stools, Diarrhea, Nausea , Vomiting, DENIES: Constipation Psychiatric: COMPLAINS OF: Anxiety Except as stated in HPI: all other systems reviewed are Neg Past Family Social History Past Medical History Arthritis Asthma Anxiety A loop recorder present Stage I stomach cancer, no chemo/radiation Fibromyalgia Gastroparesis GERD Pancreatitis Lupus MD at the age of [age] Thyroid disease Past Surgical History Right hernia repair Repair of adhesions Appendectomy Likely secondary Pacemaker placement Right hernia repair Reported Medications \Active Tylenol (Acetaminophen) 325 Mg Tab 650 Mg PO Q6H PRN Reported Ambien (Zolpidem Tartrate) 10 Mg Tab 10 Mg PO HS PRN Oxycodone (Oxycodone HCl) 10 Mg Tab 10 Mg PO [id number] PRN Midodrine 10 Mg Tab 10 Mg PO TID PRN Topamax (Topiramate) 100 Mg Tab 100 Mg PO BID Neurontin (Gabapentin) 800 Mg Tab 800 Mg PO QID Propranolol (Propranolol HCl) 60 Mg Tab 60 Mg PO BID Allergies: Coded Allergies: Sulfa (Sulfonamide Antibiotics) (Unverified Allergy, Severe, rash, 02/22/17 ) diclofenac (Unverified Allergy, Severe, 02/22/17) pancreatitis etodolac (Unverified Allergy, Severe, 02/22/17) pancreatitis flurbiprofen (Unverified Allergy, Severe, 02/22/17) pancreatitis ibuprofen (Unverified Allergy, Severe, 02/22/17) pancreatitis indomethacin (Unverified Allergy, Severe, 02/22/17) pancreatitis ketoprofen (Unverified Allergy, Severe, 02/22/17) pancreatitis ketorolac (Unverified Allergy, Severe, 02/22/17) pancreatitis naproxen (Unverified Allergy, Severe, 02/22/17) pancreatitis oxaprozin (Unverified Allergy, Severe, 02/22/17) pancreatitis penicillin G (Unverified Allergy, Severe, sob, 02/22/17) NSAIDS (Non-Steroidal Anti-Inflamma (Verified Allergy, Intermediate, STATE PANCREATITIS, 02/22/17) Active Ordered Medications Current Medications Medications (Trade) Dose Ordered Sig/[place] Route Start Time Stop Time Status Last Admin Potassium Chloride/Sodium Chloride 1,000 ml @ 200 mls/hr Q5H ONCE IV 02/22/17 15:30 02/22/17 20:29 02/22/17 16:40 (NS Flush) 2 ml UNSCH PRN IV FLUSH 02/22/17 17:00 (NS Flush) 2 ml BID IV FLUSH 02/22/17 21:00 (Zofran Inj) 4 mg Q6H PRN IVP 02/22/17 17:00 (Narcan Inj) 0.4 mg UNSCH PRN IV PUSH 02/22/17 17:00 (Adele-Colace) 1 tab BID PO 02/22/17 21:00 (Milk Of Magnesia Liq) 30 ml Q12H PRN PO 02/22/17 17:00 (Senokot) 17.2 mg Q12H PRN PO 02/22/17 17:00 (Dulcolax Supp) 10 mg DAILY PRN RECTAL 02/22/17 17:00 (Lactulose Liq) 30 ml DAILY PRN PO 02/22/17 17:00 Family History Patient states that her brother had an MD at the age of seventeen. Mother has a history of diabetes. Social History Patient denies any tobacco use. Denies any alcohol use. Denies illicit drug use. Physical Exam Vital Signs Vital Signs Date Time Temp Pulse Resp B/P (MAP) Pulse Ox O2 Delivery O2 Flow Rate FiO2 02/22/17 16:18 77 16 90/60 (70) 02/22/17 15:33 16 02/22/17 15:33 16 02/22/17 15:30 80 16 100/59 (73) 99 Room Air 02/22/17 15:00 16 02/22/17 14:32 88 16 92/60 (71) 02/22/17 13:41 73 16 92/58 (69) 99 Room Air 02/22/17 12:42 16 02/22/17 12:40 16 99 Room Air 02/22/17 12:31 98.9 90 16 95/65 (75) 99 Physical Exam GENERAL: This is a well-nourished, well-developed patient, in apparent distress , complaints of severe abdominal pain. SKIN: No rashes, ecchymoses or lesions. Warm and dry. HEAD: Atraumatic. Normocephalic. EYES: Pupils equal round and reactive. Extraocular motions intact. No scleral icterus. No injection or drainage. ENT: Nose without bleeding, purulent drainage or septal hematoma. Throat without erythema, tonsillar hypertrophy or exudate. Uvula midline. Airway patent. NECK: Trachea midline. No JVD. Supple. CARDIOVASCULAR: Regular rate and rhythm without murmurs, gallops, or rubs. RESPIRATORY: Clear to auscultation. Breath sounds equal bilaterally. No wheezes , rales, or rhonchi. GASTROINTESTINAL: Abdomen distention, tenderness, active bowel sounds 4. Guarding. MUSCULOSKELETAL: Extremities without clubbing, cyanosis. No joint tenderness, effusion, or edema noted. Left lower extremity with 1+ edema. NEUROLOGICAL: Awake and alert. Cranial nerves II through XII intact. Motor and sensory grossly within normal limits. Five out of 5 muscle strength in all muscle groups. Normal speech. Laboratory Laboratory Tests Test 02/22/17 13:00 02/22/17 13:55 White Blood Count 17.3 Red Blood Count 4.29 Hemoglobin 13.6 Hematocrit 42.1 Mean Corpuscular Volume 98.1 Mean Corpuscular Hemoglobin 31.8 Mean Corpuscular Hemoglobin Concent 32.4 Red Cell Distribution Width 13.7 Platelet Count 785 Mean Platelet Volume 7.0 Neutrophils (%) (Auto) 82.5 Lymphocytes (%) (Auto) 10.6 Monocytes (%) (Auto) 5.6 Eosinophils (%) (Auto) 0.7 Basophils (%) (Auto) 0.6 Neutrophils # (Auto) 14.3 Lymphocytes # (Auto) 1.8 Monocytes # (Auto) 1.0 Eosinophils # (Auto) 0.1 Basophils # (Auto) 0.1 CBC Comment AUTO DIFF Differential Comment AUTO DIFF CONFIRMED Platelet Estimate HIGH Platelet Morphology Comment HYPOGRAN Blood Urea Nitrogen 5 Creatinine 0.46 Random Glucose 76 Total Protein 7.0 Albumin 3.0 Calcium Level 8.1 Alkaline Phosphatase 79 Aspartate Amino Transf (AST/SGOT) 25 Alanine Aminotransferase (ALT/SGPT) 27 Total Bilirubin 0.6 Sodium Level 139 Potassium Level 3.5 Chloride Level 106 Carbon Dioxide Level 23.3 Anion Gap 10 Estimat Glomerular Filtration Rate 148 Lactic Acid Level 1.2 Lipase 227 Urine Collection Type CLEAN CATCH Urine Color STRAW Urine Turbidity SLIGHT Urine pH 6.0 Urine Specific [place] 1.025 Urine Protein 300 OR GREATER Urine Glucose (UA) NEG Urine Ketones 15 Urine Occult Blood MOD Urine Nitrite NEG Urine Bilirubin NEG Urine Leukocyte Esterase NEG Urine RBC 10-14 Urine WBC 0-2 Urine Squamous Epithelial Cells 0-5 Urine Bacteria OCC Urine Yeast with Hyphae MOD Microscopic Urinalysis Comment CULT NOT INDICATED Urine Collection Time 13:55 Date/Time Source Procedure Growth Status 02/22/17 15:45 Blood Peripheral Aerobic Blood Culture Pending Received 02/22/17 15:45 Blood Peripheral Anaerobic Blood Culture Pending Received Result Diagram: 1/10/18 1300 02/22/17 1300 Imaging Last Impressions Lower Extremity Ultrasound 02/22/17 1300 Signed Impressions: Service Date/Time: Wednesday, February 22, 2017 13:11 - CONCLUSION: Negative for deep venous thrombosis. Abrahan Villareal MD FACR Chest X-Ray 02/22/17 1252 Signed Impressions: Service Date/Time: Wednesday, February 22, 2017 13:42 - CONCLUSION: 1. No acute abnormality or significant interval change. Ted Pimentel MD Abdomen/Pelvis CT 02/22/17 1252 Signed Impressions: Service Date/Time: Wednesday, February 22, 2017 14:35 - CONCLUSION: Deterioration when compared to 07/21/16 the trace ascites and small bowel dilatation with scattered air fluid levels. I do not see an abscess. No untoward process in the pelvis cannot be excluded. Abrahan Villareal MD FACR Septic Shock Reassessment Septic shock perfusion: reassessment completed Caprini VTE Risk Assessment Caprini VTE Risk Assessment: No/Low Risk (score <= 1) Caprini Risk Assessment Model Point Value = 1 Point Value = 2 Point Value = 3 Point Value = 5 Age 41-60 Minor surgery BMI > 25 kg/m2 Swollen legs Varicose veins or History of unexplained or recurrent spontaneous Oral contraceptives or hormone replacement Sepsis (< 1 month) Serious lung disease, including pneumonia (< 1 month) Abnormal pulmonary function Acute myocardial infarction Congestive heart failure (< 1 month) History of inflammatory bowel disease Medical patient at bed rest Age 61-74 Arthroscopic surgery Major open surgery (> 45 min) Laparoscopic surgery (> 45 min) Malignancy Confined to bed (> 72 hours) Immobilizing plaster cast Central venous access Age >= 75 History of VTE Family history of VTE Factor V Leiden Prothrombin [id number] Lupus anticoagulant Anticardiolipin antibodies Elevated serum homocysteine Heparin-induced thrombocytopenia Other congenital or acquired thrombophilia Stroke (< 1 month) Elective arthroplasty Hip, pelvis, or leg fracture Acute spinal cord injury (< 1 month) Prophylaxis Regimen Total Risk Factor Score Risk Level Prophylaxis Regimen 0-1 Low Early ambulation 2 Moderate Order ONE of the following: *Sequential Compression Device (SCD) *Heparin 5000 units SQ BID 3-4 Higher Order ONE of the following medications: *Heparin 5000 units SQ TID *Enoxaparin/Lovenox 40 mg SQ daily (WT < 150 kg, CrCl > 30 mL/min) *Enoxaparin/Lovenox 30 mg SQ daily (WT < 150 kg, CrCl > 10-29 mL/min) *Enoxaparin/Lovenox 30 mg SQ BID (WT < 150 kg, CrCl > 30 mL/min) AND/OR *Sequential Compression Device (SCD) 5 or more Highest Order ONE of the following medications: *Heparin 5000 units SQ TID (Preferred with Epidurals) *Enoxaparin/Lovenox 40 mg SQ daily (WT < 150 kg, CrCl > 30 mL/min) *Enoxaparin/Lovenox 30 mg SQ daily (WT < 150 kg, CrCl > 10-29 mL/min) *Enoxaparin/Lovenox 30 mg SQ BID (WT < 150 kg, CrCl > 30 mL/min) AND *Sequential Compression Device (SCD) Assessment and Plan Problem List: (1) Intractable abdominal pain ICD Code: R10.9 - Unspecified abdominal pain Plan: Patient has been admitted, will be transferred to the main hospital in [facility]. General surgery has been consulted, appreciate further input and recommendations. Chest x-ray reviewed showing no acute abnormality or significant interval change. Abdomen/pelvis CT reviewed showing deterioration compared to prior CT scan done in July, trace ascites and small bowel dilation with scattered air-fluid levels seen. No abscess seen. General surgery has been consulted, appreciate further input and recommendations. Ensure hydration, continue IV fluids. Control pain, IV narcotics. Leukocytosis noted, will follow CBC in a.m. Blood cultures ordered and pending. Follow growth. UA negative. Lactic acid within normal limits. Liver enzymes normal. NG tube ordered, rest bowel. Control nausea, Zofran available when necessary as needed. Continue cardiac telemetry, monitor for any arrhythmias. Pulmonology was needed. (2) Edema of left lower extremity ICD Code: R60.0 - Localized edema Plan: DVT ruled out with ultrasound of left lower extremity. Encourage elevation. SCDs and Christian's ordered. Supportive Care. Discussed Condition With Kendrick Sumner, discussed and reviewed the case with Zulema Espitia. I evaluated the patient and noticed that she does have some mild to moderate abdominal distention with tenderness to palpation most prominently on her flank aspects, less in her epigastrium. Patient is very histrionic. Case discussed with emergency room doctor who discussed case with general surgery, per the recommendations patient is being transferred to [facility] for further observation. Patient states that she was operated on at [facility] some time last month in January. Physician Certification 2 Midnight Certification Type: Admission for Inpatient Services Order for Inpatient Services The services are ordered in accordance with Medicare regulations or non- Medicare payer requirements, as applicable. In the case of services not specified as inpatient-only, they are appropriately provided as inpatient services in accordance with the 2-midnight benchmark. Estimated LOS (days): 3 3 days is the estimated time the patient will need to remain in the hospital, assuming treatment plan goals are met and no additional complications. Post-Hospital Plan: Not yet determined Zulema Espitia Feb 22, 2017 17:54 Kendrick Ordoñez MD Feb 22, 2017 18:27
[2017-02-22] MEDS: DOCUSATE SODIUM 50 MG/SENNA 8.6 MG TAB PO SCH (21:00)
[2017-02-22] MEDS: SODIUM CHLORIDE 0.9% FLUSH 10 ML FLUSH IV FLUSH SCH (21:00)
[2017-02-22] MEDS ORDERED: PIPERACIL-TAZO 3.375 GM PREMIX 50 ML IV SCH (21:45)
--- NOTE | 2017-02-22 21:48 | PD.CONS ---
HPI Service General Surgery Consult Requested By Dr. Ordoñez Reason for Consult Abd pain recent surgery Primary Care Physician Mini Bobby MD History of Present Illness 41 yo F presents with abdominal pain and distention. She relates to me that she began having symptoms around [place] time and on day had rectal disimpaction. It was thought that afterwards she improved but she continued to have symptoms and two days later appears to have undergone laparoscopic adhesiolysis for bowel obstruction. These were done at [facility] and [facility]. I do not see any records or operative notes. Noted to have leukocytosis. CT a/p shows trace ascites and small bowel dilatation with air fluid levels. She relates long h/o diarrhea including since surgery. She c/ o dysuria, pelvic and rectal pressure, lower abdominal pain. PSH includes right femoral hernia repair, C section, and looks like cholecystectomy clips on CT. Per EMR she seems to have h/o chronic abdominal pain and possibly pancreatitis. She sees Dr. Landa as an outpatient. Review of Systems Constitutional: DENIES: Fever, Chills Eyes: DENIES: Eye inflammation, Eye pain Respiratory: DENIES: Cough, Wheezing Cardiovascular: DENIES: Chest pain, Palpitations Gastrointestinal: COMPLAINS OF: Abdominal pain, Diarrhea Musculoskeletal: DENIES: Muscle aches, Stiffness Integumentary: DENIES: Pruritus, Rash Neurologic: DENIES: Seizures, Speech Problems Past Family Social History Past Medical History Fibromyalgia Gastroparesis GERD Pancreatitis Lupus Thyroid disease Past Surgical History Right femoral hernia repair C section Loop recorder present Reported Medications Reported Meds & Active Scripts Active Tylenol (Acetaminophen) 325 Mg Tab 650 Mg PO Q6H PRN Reported Ambien (Zolpidem Tartrate) 10 Mg Tab 10 Mg PO HS PRN Oxycodone (Oxycodone HCl) 10 Mg Tab 10 Mg PO [id number] PRN Midodrine 10 Mg Tab 10 Mg PO TID PRN Topamax (Topiramate) 100 Mg Tab 100 Mg PO BID Neurontin (Gabapentin) 800 Mg Tab 800 Mg PO QID Propranolol (Propranolol HCl) 60 Mg Tab 60 Mg PO BID Allergies: Coded Allergies: Sulfa (Sulfonamide Antibiotics) (Unverified Allergy, Severe, rash, 02/22/17 ) diclofenac (Unverified Allergy, Severe, 02/22/17) pancreatitis etodolac (Unverified Allergy, Severe, 02/22/17) pancreatitis flurbiprofen (Unverified Allergy, Severe, 02/22/17) pancreatitis ibuprofen (Unverified Allergy, Severe, 02/22/17) pancreatitis indomethacin (Unverified Allergy, Severe, 02/22/17) pancreatitis ketoprofen (Unverified Allergy, Severe, 02/22/17) pancreatitis ketorolac (Unverified Allergy, Severe, 02/22/17) pancreatitis naproxen (Unverified Allergy, Severe, 02/22/17) pancreatitis oxaprozin (Unverified Allergy, Severe, 02/22/17) pancreatitis penicillin G (Unverified Allergy, Severe, sob, 02/22/17) NSAIDS (Non-Steroidal Anti-Inflamma (Verified Allergy, Intermediate, STATE PANCREATITIS, 02/22/17) Active Ordered Medications Current Medications Medications (Trade) Dose Ordered Sig/[place] Route Start Time Stop Time Status Last Admin (NS Flush) 2 ml UNSCH PRN IV FLUSH 02/22/17 17:00 (NS Flush) 2 ml BID IV FLUSH 02/22/17 21:00 (Zofran Inj) 4 mg Q6H PRN IVP 02/22/17 17:00 (Narcan Inj) 0.4 mg UNSCH PRN IV PUSH 02/22/17 17:00 (Adele-Colace) 1 tab BID PO 02/22/17 21:00 (Milk Of Magnesia Liq) 30 ml Q12H PRN PO 02/22/17 17:00 (Senokot) 17.2 mg Q12H PRN PO 02/22/17 17:00 (Dulcolax Supp) 10 mg DAILY PRN RECTAL 02/22/17 17:00 (Lactulose Liq) 30 ml DAILY PRN PO 02/22/17 17:00 ([place] 5-325 Mg) 1 tab Q6H PRN PO 02/22/17 18:00 (Morphine Inj) 2 mg Q3H PRN IV PUSH 02/22/17 21:00 Family History Noncontributory Social History Denies ETOH tobacco and drug use. Physical Exam Vital Signs Vital Signs Date Time Temp Pulse Resp B/P (MAP) Pulse Ox O2 Delivery O2 Flow Rate FiO2 02/22/17 18:00 73 16 102/60 (74) 98 02/22/17 16:18 77 16 90/60 (70) 02/22/17 15:33 16 02/22/17 15:33 16 02/22/17 15:30 80 16 100/59 (73) 99 Room Air 02/22/17 15:00 16 02/22/17 14:32 88 16 92/60 (71) 02/22/17 13:41 73 16 92/58 (69) 99 Room Air 02/22/17 12:42 16 02/22/17 12:40 16 99 Room Air 02/22/17 12:31 98.9 90 16 95/65 (75) 99 Physical Exam GENERAL: Awake and alert. No acute distress. Cooperative. Thin. HEAD: Normocephalic. Atraumatic. EYES: Pupils equal round and reactive to light bilaterally. No scleral icterus. ENT: Moist oral mucosa. NECK: Trachea midline. CHEST: Lungs clear to auscultation bilaterally with no wheezing or rhonchi. No respiratory distress. CARDIOVASCULAR: Regular rate and rhythm. ABDOMEN: Distended, tympanitic. moderate LLQ ttp, mild RLQ ttp. Tender at left inguinal area but no hernia palpated. Pfannenstiel scar. EXTREMITIES: No cyanosis or edema. SKIN: Warm, dry, nonjaundiced. Laboratory Laboratory Tests Test 02/22/17 13:00 02/22/17 13:55 White Blood Count 17.3 Red Blood Count 4.29 Hemoglobin 13.6 Hematocrit 42.1 Mean Corpuscular Volume 98.1 Mean Corpuscular Hemoglobin 31.8 Mean Corpuscular Hemoglobin Concent 32.4 Red Cell Distribution Width 13.7 Platelet Count 785 Mean Platelet Volume 7.0 Neutrophils (%) (Auto) 82.5 Lymphocytes (%) (Auto) 10.6 Monocytes (%) (Auto) 5.6 Eosinophils (%) (Auto) 0.7 Basophils (%) (Auto) 0.6 Neutrophils # (Auto) 14.3 Lymphocytes # (Auto) 1.8 Monocytes # (Auto) 1.0 Eosinophils # (Auto) 0.1 Basophils # (Auto) 0.1 CBC Comment AUTO DIFF Differential Comment AUTO DIFF CONFIRMED Platelet Estimate HIGH Platelet Morphology Comment HYPOGRAN Blood Urea Nitrogen 5 Creatinine 0.46 Random Glucose 76 Total Protein 7.0 Albumin 3.0 Calcium Level 8.1 Alkaline Phosphatase 79 Aspartate Amino Transf (AST/SGOT) 25 Alanine Aminotransferase (ALT/SGPT) 27 Total Bilirubin 0.6 Sodium Level 139 Potassium Level 3.5 Chloride Level 106 Carbon Dioxide Level 23.3 Anion Gap 10 Estimat Glomerular Filtration Rate 148 Lactic Acid Level 1.2 Lipase 227 Urine Collection Type CLEAN CATCH Urine Color STRAW Urine Turbidity SLIGHT Urine pH 6.0 Urine Specific [place] 1.025 Urine Protein 300 OR GREATER Urine Glucose (UA) NEG Urine Ketones 15 Urine Occult Blood MOD Urine Nitrite NEG Urine Bilirubin NEG Urine Leukocyte Esterase NEG Urine RBC 10-14 Urine WBC 0-2 Urine Squamous Epithelial Cells 0-5 Urine Bacteria OCC Urine Yeast with Hyphae MOD Microscopic Urinalysis Comment CULT NOT INDICATED Urine Collection Time 13:55 Date/Time Source Procedure Growth Status 02/22/17 15:45 Blood Peripheral Aerobic Blood Culture Pending Received 02/22/17 15:45 Blood Peripheral Anaerobic Blood Culture Pending Received Result Diagram: 02/22/17 1300 02/22/17 1300 Imaging Last Impressions Abdomen X-Ray 02/23/17 0600 Signed Impressions: Service Date/Time: February 08:21 - CONCLUSION: Mild prominent central small bowel loops. Víctor Holbrook MD Lower Extremity Ultrasound 02/22/17 1300 Signed Impressions: Service Date/Time: Wednesday, February 22, 2017 13:11 - CONCLUSION: Negative for deep venous thrombosis. Abrahan Villareal MD FACR Chest X-Ray 02/22/17 1252 Signed Impressions: Service Date/Time: Wednesday, February 22, 2017 13:42 - CONCLUSION: 1. No acute abnormality or significant interval change. Ted Pimentel MD Abdomen/Pelvis CT 02/22/17 1252 Signed Impressions: Service Date/Time: Wednesday, February 22, 2017 14:35 - CONCLUSION: Deterioration when compared to 07/21/16 the trace ascites and small bowel dilatation with scattered air fluid levels. I do not see an abscess. No untoward process in the pelvis cannot be excluded. Abrahan Villareal MD FACR Assessment and Plan Assessment and Plan 41-year-old female with history of chronic abdominal pain and pancreatitis. Per her report she underwent repeat fecal disimpaction on followed a couple days later by what looks like laparoscopic lysis of adhesions for small bowel obstruction. History of diarrhea Terrence Dias MD Feb 22, 2017 21:48 Alma Rosa Castillo Feb 24, 2017 16:31
[2017-02-22] MEDS: metroNIDAZOLE 500 MG INJ 100 ML IV SCH (22:02)
[2017-02-22] MEDS: LEVOFLOXACIN 750 MG PREMIX INJ 150 ML IV SCH (22:04)
[2017-02-22] MEDS: MORPHINE SULFATE 2 MG/ML INJ IV PUSH PRN (22:10)
[2017-02-23] VITALS: BP 99/65; PULSE 82; RESP 16; TEMP 98.9; O2SAT 99
[2017-02-23] MEDS: MORPHINE SULFATE 2 MG/ML INJ IV PUSH PRN ×6 (02:06→23:02)
[2017-02-23] MEDS: metroNIDAZOLE 500 MG INJ 100 ML IV SCH ×4 (05:45→21:11)
[2017-02-23 08:00] VITALS: BP 94/58; PULSE 71; RESP 15; TEMP 97.8; O2SAT 95
[2017-02-23 08:45] LABS: BASOPHIL # 0.1 TH/MM3 (0-0.2); BASOPHIL % 0.7 % (0.0-2.0); EOSINOPHIL # 0.1 TH/MM3 (0-0.4); EOSINOPHIL % 1.7 % (0.0-4.0); HEMATOCRIT 34.2 % (35.0-46.0); HEMOGLOBIN 11.6 GM/DL (11.6-15.3); LYMPHOCYTE # 1.3 TH/MM3 (1.0-4.8); MEAN CELL VOLUME 97.2 FL (80.0-100.0); MEAN CORPUSCULAR HEMOGLOBIN 32.9 PG (27.0-34.0); MEAN CORPUSCULAR HGB CONC 33.9 % (32.0-36.0); MONOCYTE # 0.7 TH/MM3 (0-0.9); NEUT % 72.6 % (16.0-70.0); PLATELET COUNT 633 TH/MM3 (150-450); RED BLOOD COUNT 3.52 MIL/MM3 (4.00-5.30); RED CELL DISTRIBUTION WIDTH 13.6 % (11.6-17.2); WHITE BLOOD COUNT 8.3 TH/MM3 (4.0-11.0)
[2017-02-23] MEDS: SODIUM CHLORIDE 0.9% FLUSH 10 ML FLUSH IV FLUSH SCH ×2 (09:00→21:13)
[2017-02-23] MEDS: DOCUSATE SODIUM 50 MG/SENNA 8.6 MG TAB PO SCH ×2 (09:00→21:00)
--- NOTE | 2017-02-23 09:12 | RADRPT ---
EXAM DATE/TIME: 02/23/2017 08:21 [place] COMPARISON: CT ABDOMEN & PELVIS W CONTRAST, February 22, 2017, 14:35. INDICATIONS : Abdominal pain, nausea, vomiting, diarrhea, constipation. MEDICAL HISTORY : Diabetes mellitus type II. SURGICAL HISTORY : Appendectomy. Cholecystectomy. section. Pacemaker. ENCOUNTER: Subsequent ACUITY: 2 weeks PAIN SCORE: 9/10 LOCATION: Bilateral lower quadrant FINDINGS: Supine and upright views of the abdomen were performed. Mildly dilated central small bowel loops. Air in the colon. No air fluid levels are seen. No abnormal masses, calcifications, or organomegaly is seen. The visualized lower lungs are clear. No evidence of free intraperitoneal gas. The osseous structures are unremarkable. CONCLUSION: Mild prominent central small bowel loops. Víctor Holbrook MD on February 23, 2017 at 9:09 Board Certified Radiologist. This report was verified electronically.
[2017-02-23 09:20] LABS: ALBUMIN 2.3 GM/DL (3.4-5.0); BICARBONATE 22.6 MEQ/L (21.0-32.0); CALCIUM 7.3 MG/DL (8.5-10.1); CALCIUM-PROTEIN CORRECTED 8.2 MG/DL (8.5-10.1); CREATININE 0.44 MG/DL (0.50-1.00); TOTAL BILIRUBIN ADULT 0.6 MG/DL (0.2-1.0); TOTAL PROTEIN 5.4 GM/DL (6.4-8.2)
--- NOTE | 2017-02-23 10:04 | HHI.PR ---
Subjective Subjective Notes Pain somewhat improved since NGT placement last night. C/o sore throat. Has had about 900cc brown coffee ground output from ng since placement. No records here yet from outside hospitals. Objective Vitals/I&O Vital Signs Date Time Temp Pulse Resp B/P (MAP) Pulse Ox O2 Delivery O2 Flow Rate FiO2 02/23/17 08:00 97.8 71 15 94/58 (70) 95 02/22/17 15:30 Room Air Labs Laboratory Tests Test 02/22/17 13:00 02/22/17 13:55 02/23/17 07:24 White Blood Count 17.3 8.3 Red Blood Count 4.29 3.52 Hemoglobin 13.6 11.6 Hematocrit 42.1 34.2 Mean Corpuscular Volume 98.1 97.2 Mean Corpuscular Hemoglobin 31.8 32.9 Mean Corpuscular Hemoglobin Concent 32.4 33.9 Red Cell Distribution Width 13.7 13.6 Platelet Count 785 633 Mean Platelet Volume 7.0 7.0 Neutrophils (%) (Auto) 82.5 72.6 Lymphocytes (%) (Auto) 10.6 16.0 Monocytes (%) (Auto) 5.6 9.0 Eosinophils (%) (Auto) 0.7 1.7 Basophils (%) (Auto) 0.6 0.7 Neutrophils # (Auto) 14.3 6.0 Lymphocytes # (Auto) 1.8 1.3 Monocytes # (Auto) 1.0 0.7 Eosinophils # (Auto) 0.1 0.1 Basophils # (Auto) 0.1 0.1 CBC Comment AUTO DIFF DIFF FINAL Differential Comment AUTO DIFF CONFIRMED Platelet Estimate HIGH Platelet Morphology Comment HYPOGRAN Blood Urea Nitrogen 5 4 Creatinine 0.46 0.44 Random Glucose 76 73 Total Protein 7.0 5.4 Albumin 3.0 2.3 Calcium Level 8.1 7.3 Alkaline Phosphatase 79 501 Aspartate Amino Transf (AST/SGOT) 25 71 Alanine Aminotransferase (ALT/SGPT) 27 44 Total Bilirubin 0.6 0.6 Sodium Level 139 139 Potassium Level 3.5 3.5 Chloride Level 106 108 Carbon Dioxide Level 23.3 22.6 Anion Gap 10 8 Estimat Glomerular Filtration Rate 148 156 Lactic Acid Level 1.2 Lipase 227 Urine Collection Type CLEAN CATCH Urine Color STRAW Urine Turbidity SLIGHT Urine pH 6.0 Urine Specific [place] 1.025 Urine Protein 300 OR GREATER Urine Glucose (UA) NEG Urine Ketones 15 Urine Occult Blood MOD Urine Nitrite NEG Urine Bilirubin NEG Urine Leukocyte Esterase NEG Urine RBC 10-14 Urine WBC 0-2 Urine Squamous Epithelial Cells 0-5 Urine Bacteria OCC Urine Yeast with Hyphae MOD Microscopic Urinalysis Comment CULT NOT INDICATED Urine Collection Time 13:55 Protein Corrected Calcium 8.2 Date/Time Source Procedure Growth Status 02/22/17 15:45 Blood Peripheral Aerobic Blood Culture Pending Received 02/22/17 15:45 Blood Peripheral Anaerobic Blood Culture Pending Received 02/22/17 13:55 Urine Clean Catch Urine Culture Pending Received Narrative Exam NAD Abd: soft, moderately distended but much less than yesterday, NG brown output with some coffee grounds A/P Assessment and Plan 41 yo F with complicated history of GI problems. S/p ? fecal disimpaction on per patient, followed a couple of days later by lap lysis of adhesions for small bowel obstruction. I discussed with staff obtaining op reports and fax will be sent this am. Some improvement in her condition. Cont NG. Antibiotics started by me due to her elevated WBC. I'm not sure if this is post op ileus vs obstruction vs another etiology. I would like to ask Dr. Landa to see her as she is also known to her as outpatient. Discussed with her by phone. Terrence Dias MD Feb 23, 2017 10:04
[2017-02-23] MEDS: LACTATED RINGER'S 1000 ML INJ 1,000 ML IV SCH ×2 (10:44→18:00)
--- NOTE | 2017-02-23 10:49 | HHI.PR ---
Subjective Remarks seen with quin at bedside- oper - abdominal distention- much improved with NGT placement still with abdominal pain- improved with NGT NGT- draining coffee ground Objective Vitals Vital Signs Date Time Temp Pulse Resp B/P (MAP) Pulse Ox O2 Delivery O2 Flow Rate FiO2 02/23/17 08:00 97.8 71 15 94/58 (70) 95 02/23/17 00:00 98.9 82 16 99/65 (76) 99 02/22/17 20:00 98.6 83 16 92/64 (73) 99 02/22/17 18:00 73 16 102/60 (74) 98 02/22/17 16:18 77 16 90/60 (70) 02/22/17 15:33 16 02/22/17 15:33 16 02/22/17 15:30 80 16 100/59 (73) 99 Room Air 02/22/17 15:00 16 02/22/17 14:32 88 16 92/60 (71) 02/22/17 13:41 73 16 92/58 (69) 99 Room Air 02/22/17 12:42 16 02/22/17 12:40 16 99 Room Air 02/22/17 12:31 98.9 90 16 95/65 (75) 99 I/O 02/22/17 02/22/17 02/22/17 02/23/17 02/23/17 02/23/17 07:00 15:00 23:00 07:00 15:00 23:00 Intake Total 1400 ml 250 ml 100 ml Output Total 1001 ml Balance 1400 ml -751 ml 100 ml Intake IV Total 1400 ml 250 ml 100 ml Output Urine Total 501 ml Gastric Drainage Total 500 ml # Voids 1 Result Diagram: 02/23/17 0724 02/23/17 0724 Imaging Last Impressions Abdomen X-Ray 02/23/17 0600 Signed Impressions: Service Date/Time: February 08:21 - CONCLUSION: Mild prominent central small bowel loops. Víctor Holbrook MD Lower Extremity Ultrasound 02/22/17 1300 Signed Impressions: Service Date/Time: Wednesday, February 22, 2017 13:11 - CONCLUSION: Negative for deep venous thrombosis. Abrahan Villareal MD FACR Chest X-Ray 02/22/17 1252 Signed Impressions: Service Date/Time: Wednesday, February 22, 2017 13:42 - CONCLUSION: 1. No acute abnormality or significant interval change. Ted Pimentel MD Abdomen/Pelvis CT 02/22/17 1252 Signed Impressions: Service Date/Time: Wednesday, February 22, 2017 14:35 - CONCLUSION: Deterioration when compared to 07/21/16 the trace ascites and small bowel dilatation with scattered air fluid levels. I do not see an abscess. No untoward process in the pelvis cannot be excluded. Abrahan Villareal MD FACR Objective Remarks awake andalert, dry oral mucosa, weak anicteric lungs- no rales regular rhyhtm abdomen- distended but soft, tympanitic, + tenderness on palpation diffuse, post op lap incision- dry, + bowel sounds extremities- mild trace edema- no calf swelling or tenderness neuro exam- non focal A/P Problem List: (1) Intractable abdominal pain ICD Code: R10.9 - Unspecified abdominal pain (2) Edema of left lower extremity ICD Code: R60.0 - Localized edema Assessment and Plan 41 years old female with extensive GI history Small bowel obstruction- recent explore lap for obstruction- per - cholecystectomy and bowel resection done- laproscopically History of gallstone pancreatitis - med records requested - conservative management- keep NGT - . IVF - GS ff - antibiotics started per GS GIB- coffee ground- /NGT - GI consutled - start IV PPI Left LE edema - negative for DVT - TEDs - encourage ambulation - no chemical prophylaxis with GIB Narciso Osborne MD Feb 23, 2017 10:49
[2017-02-23 12:00] VITALS: BP 96/60; PULSE 73; RESP 17; TEMP 96.9; O2SAT 96
[2017-02-23] MEDS: PANTOPRAZOLE SODIUM 40 MG VIAL IV PUSH SCH (12:04)
--- NOTE | 2017-02-23 13:58 | PD.CONS ---
HPI History of Present Illness This is a 41 year old female with hx diverticulitis, stage 1 stomach ca, gastroparesis, lupus who presented with abd pain, n/v, diarrhea. The abd pain started 02/04/17 and she had a digital disimpaction and subsequent lysis of adhesions to alleviate bowel obstruction in [place]. She admits chronic loose stools and denies having constipation after surgery but describes an inability to defecate and had to walk around a whole lot despite abd pain in order to finally have a loose BM. The n/v is a recent development but she is unable to elaborate. She admits yesterday having a bloody loose BM. Denies black tarry stool. Had EGD Colonoscopy 2013 [place], colonoscopy found polyps, benign path; EGD found gastritis, esophagitis, h pylori. During my evaluation she has dark brown output from NGT, and abd pain. Hx limited d/t pt discomfort, some hx obtained from EMR. PFSH Past Medical History Arthritis Asthma Anxiety A loop recorder present Stage I stomach cancer, no chemo/radiation Fibromyalgia Gastroparesis GERD Pancreatitis Lupus PR at the age of [age] Thyroid disease Past Surgical History Right hernia repair Repair of adhesions Appendectomy Likely secondary Pacemaker placement Right hernia repair Coded Allergies: Sulfa (Sulfonamide Antibiotics) (Unverified Allergy, Severe, rash, 02/22/17 ) diclofenac (Unverified Allergy, Severe, 02/22/17) pancreatitis etodolac (Unverified Allergy, Severe, 02/22/17) pancreatitis flurbiprofen (Unverified Allergy, Severe, 02/22/17) pancreatitis ibuprofen (Unverified Allergy, Severe, 02/22/17) pancreatitis indomethacin (Unverified Allergy, Severe, 02/22/17) pancreatitis ketoprofen (Unverified Allergy, Severe, 02/22/17) pancreatitis ketorolac (Unverified Allergy, Severe, 02/22/17) pancreatitis naproxen (Unverified Allergy, Severe, 02/22/17) pancreatitis oxaprozin (Unverified Allergy, Severe, 02/22/17) pancreatitis penicillin G (Unverified Allergy, Severe, sob, 02/22/17) NSAIDS (Non-Steroidal Anti-Inflamma (Verified Allergy, Intermediate, STATE PANCREATITIS, 02/22/17) Family History Patient states that her brother had an PR at the age of seventeen. Mother has a history of diabetes. Social History Patient denies any tobacco use. Denies any alcohol use. Denies illicit drug use. Review of Systems Constitutional: DENIES: Weight gain Endocrine: DENIES: Polydipsia Eyes: DENIES: Blurred vision Ears, nose, mouth, throat: DENIES: Hearing loss Respiratory: DENIES: Cough Cardiovascular: DENIES: Chest pain Gastrointestinal: COMPLAINS OF: Abdominal pain, Bloody stools, Diarrhea, Nausea , Vomiting, DENIES: Black stools, Constipation Genitourinary: DENIES: Hematuria Musculoskeletal: DENIES: Joint Swelling Integumentary: DENIES: Pruritus Hematologic/lymphatic: DENIES: Bruising Immunologic/allergic: DENIES: Eczema Neurologic: DENIES: Abnormal gait Psychiatric: DENIES: Confusion GI Exam Vitals I&O Vital Signs Date Time Temp Pulse Resp B/P (MAP) Pulse Ox O2 Delivery O2 Flow Rate FiO2 02/23/17 12:00 96.9 73 17 96/60 (72) 96 02/23/17 11:00 21 02/23/17 08:00 97.8 71 15 94/58 (70) 95 02/23/17 00:00 98.9 82 16 99/65 (76) 99 02/22/17 20:00 98.6 83 16 92/64 (73) 99 02/22/17 18:00 73 16 102/60 (74) 98 02/22/17 16:18 77 16 90/60 (70) 02/22/17 15:33 16 02/22/17 15:33 16 02/22/17 15:30 80 16 100/59 (73) 99 Room Air 02/22/17 15:00 16 02/22/17 14:32 88 16 92/60 (71) I/O 02/22/17 02/22/17 02/22/17 02/23/17 02/23/17 02/23/17 07:00 15:00 23:00 07:00 15:00 23:00 Intake Total 1400 ml 250 ml 800 ml Output Total 1001 ml 500 ml Balance 1400 ml -751 ml 300 ml Intake IV Total 1400 ml 250 ml 800 ml Output Urine Total 501 ml Gastric Drainage Total 500 ml 500 ml # Voids 1 Imaging Last Impressions Abdomen X-Ray 02/23/17 0600 Signed Impressions: Service Date/Time: February 08:21 - CONCLUSION: Mild prominent central small bowel loops. Víctor Holbrook MD Lower Extremity Ultrasound 02/22/17 1300 Signed Impressions: Service Date/Time: Wednesday, February 22, 2017 13:11 - CONCLUSION: Negative for deep venous thrombosis. Abrahan Villareal MD FACR Chest X-Ray 02/22/17 1252 Signed Impressions: Service Date/Time: Wednesday, February 22, 2017 13:42 - CONCLUSION: 1. No acute abnormality or significant interval change. Ted Pimentel MD Abdomen/Pelvis CT 02/22/17 1252 Signed Impressions: Service Date/Time: Wednesday, February 22, 2017 14:35 - CONCLUSION: Deterioration when compared to 07/21/16 the trace ascites and small bowel dilatation with scattered air fluid levels. I do not see an abscess. No untoward process in the pelvis cannot be excluded. Abrahan Villareal MD FACR Laboratory Test 02/22/17 13:55 02/23/17 07:24 Urine Collection Type CLEAN CATCH Urine Color STRAW Urine Turbidity SLIGHT Urine pH 6.0 Urine Specific [place] 1.025 Urine Protein 300 OR GREATER mg/dL Urine Glucose (UA) NEG mg/dL Urine Ketones 15 mg/dL Urine Occult Blood MOD Urine Nitrite NEG Urine Bilirubin NEG Urine Leukocyte Esterase NEG Urine RBC 10-14 /hpf Urine WBC 0-2 /hpf Urine Squamous Epithelial Cells 0-5 /hpf Urine Bacteria OCC /hpf Urine Yeast with Hyphae MOD Microscopic Urinalysis Comment CULT NOT INDICATED Urine Collection Time 13:55 White Blood Count 8.3 TH/MM3 Red Blood Count 3.52 MIL/MM3 Hemoglobin 11.6 GM/DL Hematocrit 34.2 % Mean Corpuscular Volume 97.2 FL Mean Corpuscular Hemoglobin 32.9 PG Mean Corpuscular Hemoglobin Concent 33.9 % Red Cell Distribution Width 13.6 % Platelet Count 633 TH/MM3 Mean Platelet Volume 7.0 FL Neutrophils (%) (Auto) 72.6 % Lymphocytes (%) (Auto) 16.0 % Monocytes (%) (Auto) 9.0 % Eosinophils (%) (Auto) 1.7 % Basophils (%) (Auto) 0.7 % Neutrophils # (Auto) 6.0 TH/MM3 Lymphocytes # (Auto) 1.3 TH/MM3 Monocytes # (Auto) 0.7 TH/MM3 Eosinophils # (Auto) 0.1 TH/MM3 Basophils # (Auto) 0.1 TH/MM3 CBC Comment DIFF FINAL Differential Comment Blood Urea Nitrogen 4 MG/DL Creatinine 0.44 MG/DL Random Glucose 73 MG/DL Total Protein 5.4 GM/DL Albumin 2.3 GM/DL Calcium Level 7.3 MG/DL Alkaline Phosphatase 501 U/L Aspartate Amino Transf (AST/SGOT) 71 U/L Alanine Aminotransferase (ALT/SGPT) 44 U/L Total Bilirubin 0.6 MG/DL Sodium Level 139 MEQ/L Potassium Level 3.5 MEQ/L Chloride Level 108 MEQ/L Carbon Dioxide Level 22.6 MEQ/L Anion Gap 8 MEQ/L Estimat Glomerular Filtration Rate 156 ML/MIN Protein Corrected Calcium 8.2 MG/DL Date/Time Source Procedure Growth Status 02/22/17 15:45 Blood Peripheral Aerobic Blood Culture - Preliminary NO GROWTH IN 1 DAY Resulted 02/22/17 15:45 Blood Peripheral Anaerobic Blood Culture - Preliminary NO GROWTH IN 1 DAY Resulted 02/22/17 13:55 Urine Clean Catch Urine Culture Pending Received Physical Examination HEENT: PERRL; normocephalic; atraumatic; no jaundice. CHEST: CTA, respirations shallow CARDIAC: RRR ABDOMEN: taut, distended, diffusely tender, tympanitic no hepatosplenomegaly; bowel sounds are present in all four quadrants. EXTREMITIES: No clubbing, cyanosis, left foot mild edema SKIN: Normal; no rash; no jaundice. REFRIGERATOR REPAIRMAN:lethargic Assessment and Plan Plan ASSESSMENT - n/v, abd pain, loose stool - ileus vs SBO. CT 02/22/17 showed small bowel dilatation with air/fluid levels, KUB 02/23/17 shows mild prominence small bowel loops. NGT. - CGE?, bloody stool- recent onset, dark brown material in NGT, bloody loose stool yesterday. HH did drop but currently WNL EGD Colonoscopy 2013 [place], colonoscopy found polyps, benign path; EGD found gastritis, esophagitis, h pylori. PLAN - NGT to [facility] - SBFT - EGD and colonoscopy, timing TBD - further recs to follow Pt seen by myself and Dr Landa and this note written on her behalf Twyla Reyes Feb 23, 2017 13:58
[2017-02-23] MEDS ORDERED: DIATRIZOATE MEGLUM/DIATRIZOATE SOD 120 ML BTL (for RAD DIAG) NG ONE (15:01)
--- NOTE | 2017-02-23 17:04 | RADRPT ---
EXAM DATE/TIME: 02/23/2017 14:42 [facility] COMPARISON: No previous studies available for comparison. INDICATIONS : Obstruction. FLUORO TIME: 8 minutes IMAGE COUNT: 8 CONTRAST: Gastrojan IMAGING TIME(S): 15 min, 30 min, 45 min, 1 hr MEDICAL HISTORY : Diabetes mellitus type II. SURGICAL HISTORY : Cholecystectomy. Appendectomy. section. Pacemaker. ENCOUNTER: Initial ACUITY: 3 weeks PAIN SCORE: 10/10 LOCATION: abdomen. FINDINGS: The preliminary block cutter film demonstrates an unremarkable bowel gas pattern. Patient status post cholec ystectomy with surgical clips in right upper abdomen. The stomach is grossly unremarkable. Examination of the small bowel demonstrates normal mucosal pattern involving the jejunum and ileum. There is no evidence of mass or obstruction. No intraluminal filling defects are identified. Small bowel transit time is normal at 120 minutes. Fluoroscopy of the abdomen and terminal ileum demonstra el no abnormality. CONCLUSION: Unremarkable exam with no evidence of obstruction. Krason Sequeira MD on February 23, 2017 at 17:00 Board Certified Radiologist. This report was verified electronically.
[2017-02-23] MEDS ORDERED: IOHEXOL 350 MG/ML 10 ML VIAL (for RAD DIAG) IVCONTRAST ONE (19:50)
[2017-02-23 20:00] VITALS: BP 91/56; PULSE 80; RESP 16; TEMP 97.9; O2SAT 94
[2017-02-23] MEDS: LEVOFLOXACIN 750 MG PREMIX INJ 150 ML IV SCH (21:11)
--- NOTE | 2017-02-23 23:07 | RADRPT ---
EXAM DATE/TIME: 02/23/2017 19:31 [facility] COMPARISON: No previous studies available for comparison. INDICATIONS : Abdominal pain. Evaluate mesenteric ischemia IV CONTRAST: 100 cc Omnipaque 350 (iohexol) IV ORAL CONTRAST: No oral contrast ingested. RADIATION DOSE: 4.46 CTDIvol (mGy) MEDICAL HISTORY : Cardiovascular disease. Pancreatitis. Diverticulitis.Hiatal hernia. Carcinoma, gastric. Lupus. SURGICAL HISTORY : Appendectomy. Cholecystectomy. ENCOUNTER: Initial ACUITY: 1 day PAIN SCALE: 5/10 LOCATION: abdomen TECHNIQUE: Volumetric scanning was performed using a multi-row detector CT scanner. The data was post processed with a variety of visualization algorithms including full volume maximum intensity projection, multi -planar sliding thin slab reformation, curved planar reformation, and surface rendering techniques. Using automated exposure control and adjustment of the mA and/or kV according to patient size, radiat ion dose was kept as low as reasonably achievable to obtain optimal diagnostic quality images. DICOM format image data is available electronically for review and comparison. FINDINGS: ABDOMINAL AORTA: The lumen is smooth without significant narrowing or aneurismal dilation. The proximal celiac and sup erior mesenteric arteries are patent and normal in diameter. There are solitary renal arteries bilat erally without gross abnormality. BIFURCATION: Normal. RIGHT PELVIS: The right common iliac, internal iliac and external iliac vessels are patent without luminal irregula rity. LEFT PELVIS: The left common iliac, internal iliac and external iliac vessels are patent and without luminal irreg ularity. There is some nonspecific dilatation of small bowel which is filled with contrast. There is contrast in the colon traced down to the rectum. There is no mechanical obstruction. There is scattered divert icula along the descending and sigmoid colon. There is some focal infiltrates in both lung bases. The findings are suggestive of atelectasis. CONCLUSION: 1. The vascular structures are patent without evidence of any focal stenosis. Specifically, no eviden ce to suggest mesenteric ischemia. 2. Scattered diverticulosis of the descending and sigmoid colon. José Badillo MD on February 23, 2017 at 22:59 Board Certified Radiologist. This report was verified electronically.
[2017-02-24] VITALS: BP 95/60; PULSE 79; RESP 17; TEMP 97.9; O2SAT 92
[2017-02-24] MEDS: metroNIDAZOLE 500 MG INJ 100 ML IV SCH ×4 (04:27→22:58)
[2017-02-24] MEDS: MORPHINE SULFATE 2 MG/ML INJ IV PUSH PRN ×2 (04:28→13:16)
[2017-02-24] MEDS: BENZOCAINE 6 MG/MENTHOL 10 MG LOZENGE BUCCAL PRN ×2 (04:29→13:16)
[2017-02-24] MEDS: LACTATED RINGER'S 1000 ML INJ 1,000 ML IV SCH (04:31)
[2017-02-24 05:58] LABS: CARCINOEMBRYONIC ANTIGEN 9.1 NG/ML (0.2-5.0)
[2017-02-24 06:03] LABS: % SATURATION IRON PROFILE 17.2 % (20-50); GAMMA GT 146 U/L (5-55); IRON (FE) 39 MCG/DL (50-170); LIPASE 200 U/L (73-393); TOTAL IRON BINDING CAPACITY 227 MCG/DL (250-450)
[2017-02-24 06:12] LABS: FERRITIN 62 NG/ML (8-252)
[2017-02-24 06:36] LABS: CA 19-9 LESS THAN 1.2 U/ML (0.0-35.0)
[2017-02-24 08:00] VITALS: BP 101/60; PULSE 73; RESP 16; TEMP 97.9; O2SAT 98
[2017-02-24] MEDS: SODIUM CHLORIDE 0.9% FLUSH 10 ML FLUSH IV FLUSH SCH ×2 (09:00→21:00)
[2017-02-24] MEDS: DOCUSATE SODIUM 50 MG/SENNA 8.6 MG TAB PO SCH ×2 (09:00→21:00)
--- NOTE | 2017-02-24 09:12 | RADRPT ---
EXAM DATE/TIME: 02/24/2017 07:57 [facility] COMPARISON: CHEST SINGLE AP, February 22, 2017, 13:42. INDICATIONS : Hypothyroidism. MEDICAL HISTORY : Gastroesophageal reflux disease. Pancreatitis. Migraine. Cardiac disorder. Heart attack. Gastropares is. Diverticulitis. Arthritis. Stomach cancer. Lupus. SURGICAL HISTORY : Pacemaker. Appendectomy. Cholecystectomy. Hernia repair. Bowel blockage repair. Surgery for adhesions . section. Dilation and curettage. Tubal ligation. ENCOUNTER: Initial ACUITY: 1 day PAIN SCORE: 0/10 LOCATION: Bilateral neck MEASUREMENTS: RIGHT LOBE: 5.0 x 1.5 x 1.9 cm LEFT LOBE: 4.1 x 1.1x 1.7 cm FINDINGS: RIGHT LOBE: Homogeneous echotexture without nodules or cysts. Vascularity is within normal limits. LEFT LOBE: Homogeneous echotexture without nodules or cysts. Vascularity is within normal limits. ISTHMUS: Normal in size without focal abnormality. CONCLUSION: Focally unremarkable sonographic appearance of the thyroid Nikolas Delgado MD on February 24, 2017 at 9:08 Board Certified Radiologist. This report was verified electronically.
[2017-02-24 09:42] LABS: HEPATITIS A AB IGM NEGATIVE (NEGATIVE); HEPATITIS B CORE AB IGM NEGATIVE (NEGATIVE); HEPATITIS B SURFACE ANTIGEN NEGATIVE (NEGATIVE); HEPATITIS C AB IgG NEGATIVE (NEGATIVE)
--- NOTE | 2017-02-24 09:54 | HHI.PR ---
Subjective Remarks hungry, abdominal pain better NGT- draining about 1 liter last shift TSH elevated- now states history of hypothyroidism - on Synthroid 50 mcg po daily Objective Vitals Vital Signs Date Time Temp Pulse Resp B/P (MAP) Pulse Ox O2 Delivery O2 Flow Rate FiO2 02/24/17 08:00 97.9 73 16 101/60 (74) 98 02/24/17 00:00 97.9 79 17 95/60 (72) 92 02/23/17 20:00 97.9 80 16 91/56 (68) 94 02/23/17 12:00 96.9 73 17 96/60 (72) 96 02/23/17 11:00 21 I/O 02/23/17 02/23/17 02/23/17 02/24/17 02/24/17 02/24/17 07:00 15:00 23:00 07:00 15:00 23:00 Intake Total 250 ml 800 ml 0 ml 1250 ml Output Total 1001 ml 500 ml 500 ml 1400 ml Balance -751 ml 300 ml -500 ml -150 ml Intake Oral 0 ml 1000 ml IV Total 250 ml 800 ml 250 ml Output Urine Total 501 ml 500 ml Stool Total 0 ml Gastric Drainage Total 500 ml 500 ml 1400 ml # Voids 1 1 # Bowel Movements 1 Result Diagram: 02/23/17 0724 02/23/17 0724 Imaging Last Impressions Thyroid Ultrasound 02/24/17 0000 Signed Impressions: Service Date/Time: Friday, February 24, 2017 07:57 - CONCLUSION: Focally unremarkable sonographic appearance of the thyroid Nikolas Delgado MD Abdomen X-Ray 02/23/17 0600 Signed Impressions: Service Date/Time: February 08:21 - CONCLUSION: Mild prominent central small bowel loops. Víctor Holbrook MD Small Bowel X-Ray 02/23/17 0000 Signed Impressions: Service Date/Time: February 14:42 - CONCLUSION: Unremarkable exam with no evidence of obstruction. Karson Sequeira MD Abdomen/Pelvis CT 02/23/17 0000 Signed Impressions: Service Date/Time: February 19:31 - CONCLUSION: 1. The vascular structures are patent without evidence of any focal stenosis. Specifically, no evidence to suggest mesenteric ischemia. 2. Scattered diverticulosis of the descending and sigmoid colon. José Badillo MD Lower Extremity Ultrasound 02/22/17 1300 Signed Impressions: Service Date/Time: Wednesday, February 22, 2017 13:11 - CONCLUSION: Negative for deep venous thrombosis. Abrahan Villareal MD FACR Chest X-Ray 02/22/17 1252 Signed Impressions: Service Date/Time: Wednesday, February 22, 2017 13:42 - CONCLUSION: 1. No acute abnormality or significant interval change. Ted Pimentel MD Objective Remarks awake and alert, dry oral mucosa, feeling better anicteric lungs- no rales regular rhyhtm abdomen- distended but soft, tympanitic, + tenderness on palpation diffuse, post op lap incision- dry, + bowel sounds extremities- mild trace edema- no calf swelling or tenderness neuro exam- non focal A/P Problem List: (1) Intractable abdominal pain ICD Code: R10.9 - Unspecified abdominal pain (2) Edema of left lower extremity ICD Code: R60.0 - Localized edema Assessment and Plan 41 years old female with extensive GI history Small bowel obstruction- recent explore lap for obstruction- per - cholecystectomy and bowel resection done- laparoscopically History of gallstone pancreatitis - med records requested - conservative management- NGT - . IVF - GS ff - antibiotics started per GS GIB- coffee ground- /NGT - GI consulted - IV PPI - CBC now Hypothyroidism - on further history- states history of hypothyroidism on 50 mcg daily -start synthroid 75 mcg daily for now while NPO - will DC on 75 mcg po daily on DC Left LE edema- improved - negative for DVT - TEDs - encourage ambulation - no chemical prophylaxis with Narciso Garcia MD Feb 24, 2017 09:54
[2017-02-24] MEDS ORDERED: LEVOTHYROXINE SODIUM 100 MCG VIAL IV PUSH SCH (10:00)
[2017-02-24 12:00] VITALS: BP 104/64; PULSE 75; RESP 16; TEMP 96.8; O2SAT 96
[2017-02-24 12:09] LABS: ALBUMIN 2.7 GM/DL (3.4-5.0); BICARBONATE 24.6 MEQ/L (21.0-32.0); BLOOD UREA NITROGEN 5 MG/DL (7-18); CHLORIDE 103 MEQ/L (98-107); CREATININE 0.59 MG/DL (0.50-1.00); GLOMERULAR FILTRATION RATE 111 ML/MIN (>89); GLUCOSE,RANDOM 108 MG/DL (74-106); SODIUM (NA) 139 MEQ/L (136-145)
[2017-02-24 12:11] LABS: ALT (GPT) 30 U/L (10-53); AST (GOT) 27 U/L (15-37)
[2017-02-24 12:19] LABS: ALKALINE PHOSPHATASE 256 U/L (45-117); FREE T3 1.25 PG/ML (2.18-3.98); FREE T4 0.92 NG/DL (0.76-1.46); TOTAL BILIRUBIN ADULT 0.4 MG/DL (0.2-1.0); TOTAL PROTEIN 6.4 GM/DL (6.4-8.2)
[2017-02-24] MEDS: PANTOPRAZOLE SODIUM 40 MG VIAL IV PUSH SCH (13:14)
[2017-02-24] MEDS: LEVOTHYROXINE SODIUM 100 MCG VIAL IV PUSH SCH (13:46)
--- NOTE | 2017-02-24 14:19 | HHI.PR ---
Subjective Subjective Notes She feels somewhat better today but is starting to feel nausea again since NG has been clamped. 950cc out from NG for 24h. SBFT unremarkable and she has had liquid stool. CTA abdomen without vascular abnormality. Objective Vitals/I&O Vital Signs Date Time Temp Pulse Resp B/P (MAP) Pulse Ox O2 Delivery O2 Flow Rate FiO2 02/24/17 12:00 96.8 75 16 104/64 (77) 96 02/23/17 11:00 21 02/22/17 15:30 Room Air Labs Laboratory Tests Test 02/24/17 04:25 02/24/17 11:10 Erythrocyte Sedimentation Rate 21 Iron Level 39 Total Iron Binding Capacity 227 Percent Iron Saturation 17.2 Ferritin 62 Gamma Glutamyl Transpeptidase 146 Lipase 200 Carcinoembryonic Antigen 9.1 CA 19-9 Antigen LESS THAN 1.2 CA 125 Antigen 74.0 Thyroid Stimulating Hormone 3rd Gen 27.000 Hepatitis A IgM Antibody NEGATIVE Hepatitis B Surface Antigen NEGATIVE Hepatitis B Core IgM Antibody NEGATIVE Hepatitis C Antibody NEGATIVE Blood Urea Nitrogen 5 Creatinine 0.59 Random Glucose 108 Total Protein 6.4 Albumin 2.7 Calcium Level 8.0 Alkaline Phosphatase 256 Aspartate Amino Transf (AST/SGOT) 27 Alanine Aminotransferase (ALT/SGPT) 30 Total Bilirubin 0.4 Sodium Level 139 Potassium Level 3.1 Chloride Level 103 Carbon Dioxide Level 24.6 Anion Gap 11 Estimat Glomerular Filtration Rate 111 Free Thyroxine 0.92 Free Triiodothyronine (T3) pg/dL 1.25 Random Cortisol 11.2 Date/Time Source Procedure Growth Status 02/22/17 15:45 Blood Peripheral Aerobic Blood Culture - Preliminary NO GROWTH IN 2 DAYS Resulted 02/22/17 15:45 Blood Peripheral Anaerobic Blood Culture - Preliminary NO GROWTH IN 2 DAYS Resulted 02/22/17 13:55 Urine Clean Catch Urine Culture - Final NO GROWTH IN 48 HOURS. Complete Radiology Last Impressions Abdomen X-Ray 02/23/17 0600 Signed Impressions: Service Date/Time: February 08:21 - CONCLUSION: Mild prominent central small bowel loops. Víctor Holbrook MD Lower Extremity Ultrasound 02/22/17 1300 Signed Impressions: Service Date/Time: Wednesday, February 22, 2017 13:11 - CONCLUSION: Negative for deep venous thrombosis. Abrahan Villareal MD FACR Chest X-Ray 02/22/17 1252 Signed Impressions: Service Date/Time: Monday, February 22, 2017 13:42 - CONCLUSION: 1. No acute abnormality or significant interval change. Ted Pimentel MD Abdomen/Pelvis CT 02/22/17 1252 Signed Impressions: Service Date/Time: Wednesday, February 22, 2017 14:35 - CONCLUSION: Deterioration when compared to 07/21/16 the trace ascites and small bowel dilatation with scattered air fluid levels. I do not see an abscess. No untoward process in the pelvis cannot be excluded. Abrahan Villareal MD FACR Narrative Exam NAD Abd: soft, moderately distended but much less than yesterday, NG brown output with some coffee grounds A/P Assessment and Plan 41 yo F with complicated history of GI problems. Outside records arrived and she had lap lysis of adhesions and reduction of internal hernia on 02/16/17. This was more recent than she had originally told us. I think this makes it more likely that this could be simply a post op ileus which appears to be resolving. SBFT is unremarkable. Ok to advance diet as tolerated. Appreciate GI input. Terrence Dias MD Feb 24, 2017 14:19
[2017-02-24 15:43] LABS: ANA SCREEN NEG (NEG)
[2017-02-24 16:00] VITALS: BP 106/70; PULSE 72; RESP 17; TEMP 98; O2SAT 99
--- NOTE | 2017-02-24 16:27 | HHI.GIFU ---
Subjective Remarks resting in bed sipping clear liquids active BS, NGT out 1 hr. afebrile (Alma Rosa Castillo) Objective Vitals I&O Vital Signs Date Time Temp Pulse Resp B/P (MAP) Pulse Ox O2 Delivery O2 Flow Rate FiO2 02/24/17 12:00 96.8 75 16 104/64 (77) 96 02/24/17 08:00 97.9 73 16 101/60 (74) 98 02/24/17 00:00 97.9 79 17 95/60 (72) 92 02/23/17 20:00 97.9 80 16 91/56 (68) 94 I/O 02/23/17 02/23/17 02/23/17 02/24/17 02/24/17 02/24/17 07:00 15:00 23:00 07:00 15:00 23:00 Intake Total 250 ml 800 ml 0 ml 1250 ml Output Total 1001 ml 500 ml 500 ml 1400 ml 950 ml Balance -751 ml 300 ml -500 ml -150 ml -950 ml Intake Oral 0 ml 1000 ml IV Total 250 ml 800 ml 250 ml Output Urine Total 501 ml 500 ml Stool Total 0 ml Gastric Drainage Total 500 ml 500 ml 1400 ml 950 ml # Voids 1 1 # Bowel Movements 1 Laboratory Laboratory Tests Test 02/24/17 04:25 02/24/17 11:10 Erythrocyte Sedimentation Rate 21 Iron Level 39 Total Iron Binding Capacity 227 Percent Iron Saturation 17.2 Ferritin 62 Gamma Glutamyl Transpeptidase 146 Lipase 200 Carcinoembryonic Antigen 9.1 CA 19-9 Antigen LESS THAN 1.2 CA 125 Antigen 74.0 Thyroid Stimulating Hormone 3rd Gen 27.000 Anti-Nuclear Antibody Screen NEG Hepatitis A IgM Antibody NEGATIVE Hepatitis B Surface Antigen NEGATIVE Hepatitis B Core IgM Antibody NEGATIVE Hepatitis C Antibody NEGATIVE Blood Urea Nitrogen 5 Creatinine 0.59 Random Glucose 108 Total Protein 6.4 Albumin 2.7 Calcium Level 8.0 Alkaline Phosphatase 256 Aspartate Amino Transf (AST/SGOT) 27 Alanine Aminotransferase (ALT/SGPT) 30 Total Bilirubin 0.4 Sodium Level 139 Potassium Level 3.1 Chloride Level 103 Carbon Dioxide Level 24.6 Anion Gap 11 Estimat Glomerular Filtration Rate 111 Free Thyroxine 0.92 Free Triiodothyronine (T3) pg/dL 1.25 Random Cortisol 11.2 Date/Time Source Procedure Growth Status 02/22/17 15:45 Blood Peripheral Aerobic Blood Culture - Preliminary NO GROWTH IN 2 DAYS Resulted 02/22/17 15:45 Blood Peripheral Anaerobic Blood Culture - Preliminary NO GROWTH IN 2 DAYS Resulted 02/22/17 13:55 Urine Clean Catch Urine Culture - Final NO GROWTH IN 48 HOURS. Complete Imaging Last Impressions Thyroid Ultrasound 02/24/17 0000 Signed Impressions: Service Date/Time: Friday, February 24, 2017 07:57 - CONCLUSION: Focally unremarkable sonographic appearance of the thyroid Nikolas Delgado MD Abdomen X-Ray 02/23/17 0600 Signed Impressions: Service Date/Time: February 08:21 - CONCLUSION: Mild prominent central small bowel loops. Víctor Holbrook MD Small Bowel X-Ray 02/23/17 0000 Signed Impressions: Service Date/Time: February 14:42 - CONCLUSION: Unremarkable exam with no evidence of obstruction. Karson Sequeira MD Abdomen/Pelvis CT 02/23/17 0000 Signed Impressions: Service Date/Time: February 19:31 - CONCLUSION: 1. The vascular structures are patent without evidence of any focal stenosis. Specifically, no evidence to suggest mesenteric ischemia. 2. Scattered diverticulosis of the descending and sigmoid colon. José Badillo MD Lower Extremity Ultrasound 02/22/17 1300 Signed Impressions: Service Date/Time: Wednesday, February 22, 2017 13:11 - CONCLUSION: Negative for deep venous thrombosis. Abrahan Villareal MD FACR Chest X-Ray 02/22/17 1252 Signed Impressions: Service Date/Time: Wednesday, February 22, 2017 13:42 - CONCLUSION: 1. No acute abnormality or significant interval change. Ted Pimentel MD Physical Exam HEENT: Pupils round and reactive to light; normocephalic; atraumatic; no jaundice. NECK: Neck is supple, thin CHEST: Chest is clear to auscultation and percussion. CARDIAC: Regular rate and rhythm with no murmur gallop or rubs. ABDOMEN: tympanic mild distended, no hepatosplenomegaly; bowel sounds are present in all four quadrants. EXTREMITIES: No clubbing, cyanosis, or edema. SKIN: Normal; no rash; no jaundice. STUDENT ACTIVITIES DIRECTOR: No focal deficits; alert and oriented times three. (Anna,Alma Rosa M. REHABILITATION NURSE) Assessment and Plan Plan ASSESSMENT - n/v, abd pain, loose stool - ileus vs SBO. CT 02/22/17 showed small bowel dilatation with air/fluid levels, KUB 02/23/17 shows mild prominence small bowel loops - CGE?, bloody stool- recent onset, dark brown material in NGT, bloody loose stool yesterday. HH did drop but currently WNL EGD Colonoscopy 2013 [place], colonoscopy found polyps, benign path; EGD found gastritis, esophagitis, h pylori. PLAN PPI - NGT DCd per Surgery Increase activity, up in rm - clear liquids - EGD and colonoscopy, timing TBD - further recs to follow Pt seen by myself and Dr Landa and this note written on her behalf (Alma Rosa Castillo) Physician Comments seen, examined sbft, ct angiogram negative hypothyroid -supplementation as per primary stool studies trial of pancreatic enzymes with meals egd/colon on Monday (Cailin Landa MD) Alma Rosa Castillo Feb 24, 2017 16:27 Cailin Landa MD Feb 24, 2017 22:09
[2017-02-24] MEDS ORDERED: POTASSIUM CHLOR 10 MEQ PREMIX 100 ML IV ONE (17:00)
[2017-02-24] MEDS: D5-NS + KCL 20 MEQ INJ 1,000 ML IV SCH (17:48)
[2017-02-24] MEDS: ACETAMINOPHEN/HYDROcodone 325 MG/5 MG TAB PO PRN ×2 (17:52→22:57)
[2017-02-24 20:00] VITALS: BP 101/62; PULSE 68; RESP 18; TEMP 97.2; O2SAT 95
[2017-02-24] MEDS: LEVOFLOXACIN 750 MG PREMIX INJ 150 ML IV SCH (21:08)
[2017-02-25] VITALS: BP 106/65; PULSE 70; RESP 18; TEMP 97.6; O2SAT 97
[2017-02-25] MEDS: ACETAMINOPHEN/HYDROcodone 325 MG/5 MG TAB PO PRN ×3 (04:21→17:03)
[2017-02-25] MEDS: metroNIDAZOLE 500 MG INJ 100 ML IV SCH ×2 (04:22→08:28)
[2017-02-25] MEDS: LEVOTHYROXINE SODIUM 100 MCG VIAL IV PUSH SCH (05:59)
[2017-02-25] MEDS: D5-NS + KCL 20 MEQ INJ 1,000 ML IV SCH ×3 (06:18→21:47)
[2017-02-25 07:32] LABS: BICARBONATE 25.7 MEQ/L (21.0-32.0); CALCIUM 7.5 MG/DL (8.5-10.1); CREATININE 0.49 MG/DL (0.50-1.00)
[2017-02-25 08:00] VITALS: BP 104/68; PULSE 70; RESP 17; TEMP 96.6; O2SAT 97
[2017-02-25] MEDS: LIPASE/PROTEASE/AMYLASE (12,000/38,000/60,000) CAP PO SCH ×3 (08:28→17:03)
[2017-02-25] MEDS: DOCUSATE SODIUM 50 MG/SENNA 8.6 MG TAB PO SCH ×2 (08:28→21:00)
[2017-02-25] MEDS: SODIUM CHLORIDE 0.9% FLUSH 10 ML FLUSH IV FLUSH SCH ×2 (08:28→21:00)
[2017-02-25] MEDS: PANTOPRAZOLE SODIUM 40 MG VIAL IV PUSH SCH (08:28)
[2017-02-25 10:56] VITALS: O2SAT 97
--- NOTE | 2017-02-25 11:00 | HHI.PR ---
Subjective Remarks abdomen feels distended but soft no nausea or vomiting but still with abdominal pain having liquid stools Objective Vitals Vital Signs Date Time Temp Pulse Resp B/P (MAP) Pulse Ox O2 Delivery O2 Flow Rate FiO2 02/25/17 08:00 96.6 70 17 104/68 (80) 97 02/25/17 00:00 97.6 70 18 106/65 (79) 97 02/24/17 20:00 97.2 68 18 101/62 (75) 95 02/24/17 16:00 98.0 72 17 106/70 (82) 99 02/24/17 12:00 96.8 75 16 104/64 (77) 96 I/O 02/24/17 02/24/17 02/24/17 02/25/17 02/25/17 02/25/17 07:00 15:00 23:00 07:00 15:00 23:00 Intake Total 1250 ml 1655 ml 890 ml Output Total 1400 ml 950 ml Balance -150 ml -950 ml 1655 ml 890 ml Intake Oral 1000 ml 240 ml 240 ml IV Total 250 ml 1415 ml 650 ml Stool Total 0 ml Gastric Drainage Total 1400 ml 950 ml # Voids 1 4 1 # Bowel Movements 3 Result Diagram: 02/23/17 0724 02/25/17 0514 Imaging Last Impressions Thyroid Ultrasound 02/24/17 0000 Signed Impressions: Service Date/Time: Friday, February 24, 2017 07:57 - CONCLUSION: Focally unremarkable sonographic appearance of the thyroid Nikolas Delgado MD Abdomen X-Ray 02/23/17 0600 Signed Impressions: Service Date/Time: February 08:21 - CONCLUSION: Mild prominent central small bowel loops. Víctor Holbrook MD Small Bowel X-Ray 02/23/17 0000 Signed Impressions: Service Date/Time: February 14:42 - CONCLUSION: Unremarkable exam with no evidence of obstruction. Karson Sequeira MD Abdomen/Pelvis CT 02/23/17 0000 Signed Impressions: Service Date/Time: February 19:31 - CONCLUSION: 1. The vascular structures are patent without evidence of any focal stenosis. Specifically, no evidence to suggest mesenteric ischemia. 2. Scattered diverticulosis of the descending and sigmoid colon. José Badillo MD Lower Extremity Ultrasound 02/22/17 1300 Signed Impressions: Service Date/Time: Wednesday, February 22, 2017 13:11 - CONCLUSION: Negative for deep venous thrombosis. Abrahan Villareal MD FACR Chest X-Ray 02/22/17 1252 Signed Impressions: Service Date/Time: Wednesday, February 22, 2017 13:42 - CONCLUSION: 1. No acute abnormality or significant interval change. Ted Pimentel MD Objective Remarks awake and alert, dry oral mucosa anicteric lungs- no rales regular rhyhtm abdomen-still distended but soft, tympanitic, + tenderness on palpation diffuse , post op lap incision- dry, + hyperactive bowel sounds extremities- no calf swelling or tenderness neuro exam- non focal A/P Problem List: (1) Intractable abdominal pain ICD Code: R10.9 - Unspecified abdominal pain (2) Edema of left lower extremity ICD Code: R60.0 - Localized edema Assessment and Plan 41 years old female with extensive GI history Small bowel obstruction- recent explore lap for obstruction-/cholecystectomy and bowel resection done-\ History of gallstone pancreatitis - check lipase today. get another KUB - . IVF - GS ff - antibiotics per GS - prn pain meds GIB- - H and H stable. no further episodes elevated tumor markers- CEA - IV PPI - GI ff HYpokalemia- replace IV and po Hypothyroidism - on further history- states history of hypothyroidism on 50 mcg daily -start synthroid 75 mcg daily for now while NPO - will DC on 75 mcg po daily on DC Left LE edema- improved - negative for DVT - TEDs - encourage ambulation- patient up and ambulating - no chemical prophylaxis with Narciso Garcia MD Feb 25, 2017 11:00
[2017-02-25] MEDS: POTASSIUM CHLOR 10 MEQ PREMIX 100 ML IV SCH ×3 (11:39→17:03)
--- NOTE | 2017-02-25 11:56 | HHI.PR ---
Subjective Subjective Notes Having multiple liquid stools. States recurrence of abdominal pain after trying jello this am. Objective Vitals/I&O Vital Signs Date Time Temp Pulse Resp B/P (MAP) Pulse Ox O2 Delivery O2 Flow Rate FiO2 02/25/17 10:56 97 02/25/17 08:00 96.6 70 17 104/68 (80) 02/23/17 11:00 21 02/22/17 15:30 Room Air Labs Laboratory Tests Test 02/25/17 05:14 Blood Urea Nitrogen 3 Creatinine 0.49 Random Glucose 87 Calcium Level 7.5 Sodium Level 138 Potassium Level 3.1 Chloride Level 103 Carbon Dioxide Level 25.7 Anion Gap 9 Estimat Glomerular Filtration Rate 138 Date/Time Source Procedure Growth Status 02/22/17 15:45 Blood Peripheral Aerobic Blood Culture - Preliminary NO GROWTH IN 3 DAYS Resulted 02/22/17 15:45 Blood Peripheral Anaerobic Blood Culture - Preliminary NO GROWTH IN 3 DAYS Resulted 02/22/17 13:55 Urine Clean Catch Urine Culture - Final NO GROWTH IN 48 HOURS. Complete Radiology Last Impressions Abdomen X-Ray 02/23/17 0600 Signed Impressions: Service Date/Time: February 08:21 - CONCLUSION: Mild prominent central small bowel loops. Víctor Holbrook MD Lower Extremity Ultrasound 02/22/17 1300 Signed Impressions: Service Date/Time: Wednesday, February 22, 2017 13:11 - CONCLUSION: Negative for deep venous thrombosis. Abrahan Villareal MD FACR Chest X-Ray 02/22/17 1252 Signed Impressions: Service Date/Time: Wednesday, February 22, 2017 13:42 - CONCLUSION: 1. No acute abnormality or significant interval change. Ted Pimentel MD Abdomen/Pelvis CT 02/22/17 1252 Signed Impressions: Service Date/Time: Wednesday, February 22, 2017 14:35 - CONCLUSION: Deterioration when compared to 07/21/16 the trace ascites and small bowel dilatation with scattered air fluid levels. I do not see an abscess. No untoward process in the pelvis cannot be excluded. Abrahan Villareal MD FACR Narrative Exam NAD Abd: soft, moderately distended, moderate lower abd ttp A/P Assessment and Plan 41 yo F with complicated history of GI problems, apparent post op ileus. D/c antibiotics. Continue to await return of bowel function. Started on pancreatic enzymes per Dr. Landa, and EGD/colonoscopy planned for Monday. I am going to follow peripherally and be available as needed. Terrence Dias MD Feb 25, 2017 11:56
[2017-02-25 12:00] VITALS: BP 108/77; PULSE 70; RESP 19; TEMP 98.8; O2SAT 98
--- NOTE | 2017-02-25 12:17 | RADRPT ---
EXAM DATE/TIME: 02/25/2017 11:56 [facility] COMPARISON: ABDOMEN FLAT & UPRIGHT, February 23, 2017, 8:21. INDICATIONS : Abdominal pain MEDICAL HISTORY : Diabetes mellitus type II. SURGICAL HISTORY : Cholecystectomy. Appendectomy. section. Pacemaker. ENCOUNTER: Initial ACUITY: 3 weeks PAIN SCORE: 9/10 LOCATION: Bilateral Abdomen FINDINGS: Supine and upright views of the abdomen. Gas and contrast scattered throughout the nondilated colon. Several mildly dilated loops of air-filled mid small bowel are again seen. No evidence of free air. S urgical clips in right upper quadrant of the abdomen. CONCLUSION: Bowel gas pattern is very similar to the prior study. Several loops of distended air-filled note smal l bowel. Contrast is now seen in the nondilated colon. Conor Campa MD on February 25, 2017 at 12:14 Board Certified Radiologist. This report was verified electronically.
[2017-02-25 15:11] LABS: SMOOTH MUSCLE TOTAL AUTOABS Negative (Negative)
[2017-02-25 16:00] VITALS: BP 117/79; PULSE 70; RESP 17; TEMP 97.3; O2SAT 95
[2017-02-25 16:46] LABS: ALPHA-1-ANTITRYPSIN 299 mg/dL (100 - 190)
--- NOTE | 2017-02-25 17:01 | HHI.GIFU ---
Subjective Remarks Pt OOB walking to bathroom. Diarrhea began this morning also reports a lot of gas and abdominal distension. Has not drank anything because she is afraid it will make her pain worse. (Azalea Khoury) Objective Vitals I&O Vital Signs Date Time Temp Pulse Resp B/P (MAP) Pulse Ox O2 Delivery O2 Flow Rate FiO2 02/25/17 12:00 98.8 70 19 108/77 (87) 98 02/25/17 10:56 97 02/25/17 08:00 96.6 70 17 104/68 (80) 97 02/25/17 00:00 97.6 70 18 106/65 (79) 97 02/24/17 20:00 97.2 68 18 101/62 (75) 95 I/O 02/24/17 02/24/17 02/24/17 02/25/17 02/25/17 02/25/17 06:59 14:59 22:59 06:59 14:59 22:59 Intake Total 1250 ml 1655 ml 890 ml Output Total 1400 ml 950 ml Balance -150 ml -950 ml 1655 ml 890 ml Intake Oral 1000 ml 240 ml 240 ml IV Total 250 ml 1415 ml 650 ml Stool Total 0 ml Gastric Drainage Total 1400 ml 950 ml # Voids 1 4 1 # Bowel Movements 3 Laboratory Laboratory Tests Test 02/25/17 05:14 Blood Urea Nitrogen 3 Creatinine 0.49 Random Glucose 87 Calcium Level 7.5 Sodium Level 138 Potassium Level 3.1 Chloride Level 103 Carbon Dioxide Level 25.7 Anion Gap 9 Estimat Glomerular Filtration Rate 138 Lipase 346 Date/Time Source Procedure Growth Status 02/22/17 15:45 Blood Peripheral Aerobic Blood Culture - Preliminary NO GROWTH IN 3 DAYS Resulted 02/22/17 15:45 Blood Peripheral Anaerobic Blood Culture - Preliminary NO GROWTH IN 3 DAYS Resulted 02/22/17 13:55 Urine Clean Catch Urine Culture - Final NO GROWTH IN 48 HOURS. Complete Imaging Last Impressions Abdomen X-Ray 02/25/17 1106 Signed Impressions: Service Date/Time: Saturday, February 25, 2017 11:56 - CONCLUSION: Bowel gas pattern is very similar to the prior study. Several loops of distended air-filled note small bowel. Contrast is now seen in the nondilated colon. Conor Campa MD Thyroid Ultrasound 02/24/17 0000 Signed Impressions: Service Date/Time: Friday, February 24, 2017 07:57 - CONCLUSION: Focally unremarkable sonographic appearance of the thyroid Nikolas Delgado MD Small Bowel X-Ray 02/23/17 0000 Signed Impressions: Service Date/Time: February 14:42 - CONCLUSION: Unremarkable exam with no evidence of obstruction. Karson Sequeira MD Abdomen/Pelvis CT 02/23/17 0000 Signed Impressions: Service Date/Time: February 19:31 - CONCLUSION: 1. The vascular structures are patent without evidence of any focal stenosis. Specifically, no evidence to suggest mesenteric ischemia. 2. Scattered diverticulosis of the descending and sigmoid colon. José Badillo MD Lower Extremity Ultrasound 02/22/17 1300 Signed Impressions: Service Date/Time: Wednesday, February 22, 2017 13:11 - CONCLUSION: Negative for deep venous thrombosis. Abrahan Villareal MD FACR Chest X-Ray 02/22/17 1252 Signed Impressions: Service Date/Time: Wednesday, February 22, 2017 13:42 - CONCLUSION: 1. No acute abnormality or significant interval change. Ted Pimentel MD Physical Exam HEENT: Normocephalic; atraumatic CHEST: Even/unlabored CARDIAC: RRR. ABDOMEN: Distended, soft, diffuse tenderness, bowel sounds active EXTREMITIES: No clubbing, cyanosis, or edema. SKIN: Normal; no rash; no jaundice. PIPE PRODUCTION WORKER: No focal deficits; alert and oriented times three. (Azalea Khoury METAPHYSICS TEACHER) Assessment and Plan Plan ASSESSMENT - Post-op ileus- Pt recently discharged from a hospital in [facility] S/P exploratory laparotomy with colectomy for small bowel obstruction. Pt came to [place] with complaints of abdominal pain, nausea, and vomiting. Originally with NGT tube with feces appearing output. GS following. SBFT unremarkable. CTA abdomen without vascular abnormalities. Pt with continued abdominal distension, pain, and diarrhea. She has not been taking PO due to fear of pain. - Pt started on Creon today, however, has not been eating - Diarrhea- stool studies pending - Significant GI history- Recurrent H. pylori, stage 1 stomach cancer, gastroparesis Of note, pt was found to have hypothyroid and has been started on thyroid replacement PLAN - EGD and colonoscopy on Monday - Obtain consents - Clear liquids Monday - NPO after MN Monday - Magnesium citrate prep - Continue Protonix - Continue Creon - Monitor labs - Monitor stool count - Stool studies pending - Supportive care - Further recommendations to follow based on results of above Pt seen by myself and Dr Landa and this note written on her behalf (Azalea Khoury) Physician Comments seen, examined agree with above advance to soft diet trial of REglan iv, trial of Rifaximin 550 mg po bid (Cailin Landa MD) Azalea Khoury Feb 25, 2017 17:01 Cailin Landa MD Feb 25, 2017 18:29
[2017-02-25 20:00] VITALS: BP 110/62; PULSE 82; RESP 16; TEMP 96.7; O2SAT 92
[2017-02-25] MEDS: METOCLOPRAMIDE HCL 10 MG/2 ML VIAL IM SCH (21:47)
[2017-02-25] MEDS: RIFAXIMIN 550 MG TAB PO SCH (21:47)
[2017-02-25 23:52] LABS: THYROID PEROX AB (MICROSOMAL) GREATER THAN 1000 IU/mL (<9)
[2017-02-26] VITALS: BP 106/69; PULSE 70; RESP 16; TEMP 97.2; O2SAT 96
[2017-02-26] MEDS: LEVOTHYROXINE SODIUM 100 MCG VIAL IV PUSH SCH (05:25)
[2017-02-26] MEDS: METOCLOPRAMIDE HCL 10 MG/2 ML VIAL IM SCH ×3 (05:25→20:59)
[2017-02-26 08:00] VITALS: BP 111/73; PULSE 70; RESP 17; TEMP 98.1; O2SAT 95
[2017-02-26] MEDS: DOCUSATE SODIUM 50 MG/SENNA 8.6 MG TAB PO SCH ×3 (08:01→20:59)
[2017-02-26] MEDS: SODIUM CHLORIDE 0.9% FLUSH 10 ML FLUSH IV FLUSH SCH ×2 (08:01→20:59)
[2017-02-26] MEDS: LIPASE/PROTEASE/AMYLASE (12,000/38,000/60,000) CAP PO SCH ×3 (08:03→17:13)
[2017-02-26] MEDS: RIFAXIMIN 550 MG TAB PO SCH ×2 (08:03→20:58)
[2017-02-26] MEDS: PANTOPRAZOLE SODIUM 40 MG VIAL IV PUSH SCH (08:03)
--- NOTE | 2017-02-26 09:00 | HHI.PR ---
Subjective Remarks states feeling better, tolerating po + passing out flatus- - Had a good small semi formed BM this am patient up and ambulating, no nausea, vomiting- still with epigastric pain- " a little better" Objective Vitals Vital Signs Date Time Temp Pulse Resp B/P (MAP) Pulse Ox O2 Delivery O2 Flow Rate FiO2 02/26/17 08:00 98.1 70 17 111/73 (86) 95 02/26/17 00:00 97.2 70 16 106/69 (81) 96 02/25/17 20:00 96.7 82 16 110/62 (78) 92 02/25/17 16:00 97.3 70 17 117/79 (92) 95 02/25/17 12:00 98.8 70 19 108/77 (87) 98 02/25/17 10:56 97 I/O 02/25/17 02/25/17 02/25/17 02/26/17 02/26/17 02/26/17 07:00 15:00 23:00 07:00 15:00 23:00 Intake Total 890 ml 200 ml 200 ml Output Total 800 ml Balance 890 ml 200 ml 200 ml -800 ml Intake Oral 240 ml 0 ml IV Total 650 ml 200 ml 200 ml Output Urine Total 800 ml # Voids 1 1 # Bowel Movements 1 Result Diagram: 02/23/17 0724 02/25/17 0514 Imaging Last Impressions Abdomen X-Ray 02/25/17 1106 Signed Impressions: Service Date/Time: Saturday, February 25, 2017 11:56 - CONCLUSION: Bowel gas pattern is very similar to the prior study. Several loops of distended air-filled note small bowel. Contrast is now seen in the nondilated colon. Conor Campa MD Thyroid Ultrasound 02/24/17 0000 Signed Impressions: Service Date/Time: Friday, February 24, 2017 07:57 - CONCLUSION: Focally unremarkable sonographic appearance of the thyroid Nikolas Delgado MD Small Bowel X-Ray 02/23/17 0000 Signed Impressions: Service Date/Time: February 14:42 - CONCLUSION: Unremarkable exam with no evidence of obstruction. Karson Sequeira MD Abdomen/Pelvis CT 02/23/17 0000 Signed Impressions: Service Date/Time: February 19:31 - CONCLUSION: 1. The vascular structures are patent without evidence of any focal stenosis. Specifically, no evidence to suggest mesenteric ischemia. 2. Scattered diverticulosis of the descending and sigmoid colon. José Badillo MD Lower Extremity Ultrasound 02/22/17 1300 Signed Impressions: Service Date/Time: Wednesday, February 22, 2017 13:11 - CONCLUSION: Negative for deep venous thrombosis. Abrahan Villareal MD FACR Chest X-Ray 02/22/17 1252 Signed Impressions: Service Date/Time: Wednesday, February 22, 2017 13:42 - CONCLUSION: 1. No acute abnormality or significant interval change. Ted Pimentel MD Objective Remarks awake and alert, anicteric lungs- no rales regular rhythm abdomen-still distended but soft, tympanitic, + tenderness on palpation epigastric area, post op lap incision- dry, + hyperactive bowel sounds extremities- no calf swelling or tenderness neuro exam- non focal A/P Problem List: (1) Intractable abdominal pain ICD Code: R10.9 - Unspecified abdominal pain (2) Edema of left lower extremity ICD Code: R60.0 - Localized edema Assessment and Plan 41 years old female with extensive GI history Small bowel obstruction- recent explore lap for obstruction-/cholecystectomy and bowel resection done-\\ History of gallstone pancreatitis - . IVF - GS ff - antibiotics per GS - prn pain meds GIB- - H and H stable. no further episodes elevated tumor markers- CEA - IV PPI - GI ff - for scope in am HYpokalemia- replace IV and po - K in main IVF - BMP pending this am Hypothyroidism- likely autoimmune related- anti HPO elevated - on further history- states history of hypothyroidism on 50 mcg daily - on IV synthroid 75 mcg daily - will DC on 75 mcg po daily on DC - will need OP ff up with account administrator- Left LE edema- improved - negative for DVT - TEDs - encourage ambulation- patient up and ambulating - no chemical prophylaxis with GIB Narciso Osborne MD Feb 26, 2017 09:00
[2017-02-26 10:17] VITALS: O2SAT 95
[2017-02-26 11:51] LABS: ALBUMIN 2.4 GM/DL (3.4-5.0); ALKALINE PHOSPHATASE 159 U/L (45-117); ALT (GPT) 22 U/L (10-53); AST (GOT) 14 U/L (15-37); BICARBONATE 19.1 MEQ/L (21.0-32.0); BLOOD UREA NITROGEN 2 MG/DL (7-18); CHLORIDE 111 MEQ/L (98-107); CREATININE 0.64 MG/DL (0.50-1.00); GLOMERULAR FILTRATION RATE 101 ML/MIN (>89); GLUCOSE,RANDOM 88 MG/DL (74-106); SODIUM (NA) 139 MEQ/L (136-145); TOTAL BILIRUBIN ADULT 0.3 MG/DL (0.2-1.0); TOTAL PROTEIN 6.1 GM/DL (6.4-8.2)
[2017-02-26 12:00] VITALS: BP 112/74; PULSE 70; RESP 16; TEMP 97.2; O2SAT 97
[2017-02-26 12:18] LABS: AUTOMATED NEUTROPHIL # 6.5 TH/MM3 (1.8-7.7); BASOPHIL % 0.3 % (0.0-2.0); EOSINOPHIL # 0.2 TH/MM3 (0-0.4); EOSINOPHIL % 1.7 % (0.0-4.0); HEMATOCRIT 38.3 % (35.0-46.0); HEMOGLOBIN 12.8 GM/DL (11.6-15.3); LYMPH % 19.2 % (9.0-44.0); LYMPHOCYTE # 1.7 TH/MM3 (1.0-4.8); MEAN CELL VOLUME 98.2 FL (80.0-100.0); MEAN CORPUSCULAR HEMOGLOBIN 32.9 PG (27.0-34.0); MEAN CORPUSCULAR HGB CONC 33.5 % (32.0-36.0); MONO % 6.7 % (0.0-8.0); MONOCYTE # 0.6 TH/MM3 (0-0.9); NEUT % 72.1 % (16.0-70.0); PLATELET COUNT 805 TH/MM3 (150-450); RED CELL DISTRIBUTION WIDTH 13.6 % (11.6-17.2)
[2017-02-26 16:00] VITALS: BP 126/80; PULSE 70; RESP 16; TEMP 97.6; O2SAT 95
[2017-02-26] MEDS: D5-NS + KCL 20 MEQ INJ 1,000 ML IV SCH ×2 (16:40→23:05)
[2017-02-26] MEDS ORDERED: MAGNESIUM CITRATE SOLN 300 ML BTL PO ONE ×2 (17:00→19:00)
[2017-02-26] MEDS: ACETAMINOPHEN/HYDROcodone 325 MG/5 MG TAB PO PRN (17:58)
[2017-02-26 19:51] LABS: CERULOPLASMIN 36 mg/dL (18-53)
[2017-02-26 20:00] VITALS: BP 106/70; PULSE 69; RESP 16; TEMP 98.7; O2SAT 96
[2017-02-27] MEDS: ACETAMINOPHEN/HYDROcodone 325 MG/5 MG TAB PO PRN ×3 (00:23→18:25)
[2017-02-27 00:34] VITALS: BP 110/67; PULSE 70; RESP 16; TEMP 96.8; O2SAT 94
[2017-02-27] MEDS ORDERED: CHLORHEXIDINE GLUCONATE 2 % 1 PACK (2 CLOTHS) TOPICAL PRN (02:15)
[2017-02-27] MEDS ORDERED: POVIDONE IODINE 5% (ANTISEPSIS KIT) 4 APPLICATIONS EACH NARE PRN (02:15)
[2017-02-27] MEDS ORDERED: LACTATED RINGER'S 1000 ML IV PRN (02:15)
[2017-02-27] MEDS: LEVOTHYROXINE SODIUM 100 MCG VIAL IV PUSH SCH (04:56)
[2017-02-27] MEDS: METOCLOPRAMIDE HCL 10 MG/2 ML VIAL IM SCH ×3 (04:56→20:25)
[2017-02-27 08:00] VITALS: BP 118/75; PULSE 70; RESP 17; TEMP 98.3; O2SAT 93
[2017-02-27] MEDS: PANTOPRAZOLE SODIUM 40 MG VIAL IV PUSH SCH (08:38)
[2017-02-27] MEDS: RIFAXIMIN 550 MG TAB PO SCH ×2 (08:38→20:25)
[2017-02-27] MEDS: LIPASE/PROTEASE/AMYLASE (12,000/38,000/60,000) CAP PO SCH ×3 (08:39→18:28)
[2017-02-27] MEDS: DOCUSATE SODIUM 50 MG/SENNA 8.6 MG TAB PO SCH ×2 (08:39→20:25)
[2017-02-27] MEDS: D5-NS + KCL 20 MEQ INJ 1,000 ML IV SCH (08:49)
[2017-02-27] MEDS: SODIUM CHLORIDE 0.9% FLUSH 10 ML FLUSH IV FLUSH SCH ×2 (08:50→20:25)
--- NOTE | 2017-02-27 10:37 | HHI.PR ---
Subjective Remarks no nuasea or vomiting passing out lots of flatus + stools from prep still with lower abdominal discomfort Objective Vitals Vital Signs Date Time Temp Pulse Resp B/P (MAP) Pulse Ox O2 Delivery O2 Flow Rate FiO2 02/27/17 08:00 98.3 70 17 118/75 (89) 93 02/27/17 00:34 96.8 70 16 110/67 (81) 94 02/26/17 21:40 21 02/26/17 20:00 98.7 69 16 106/70 (82) 96 02/26/17 16:00 97.6 70 16 126/80 (95) 95 02/26/17 12:00 97.2 70 16 112/74 (87) 97 I/O 02/26/17 02/26/17 02/26/17 02/27/17 02/27/17 02/27/17 07:00 15:00 23:00 07:00 15:00 23:00 Intake Total 240 ml 1000 ml Output Total 800 ml 1300 ml 500 ml Balance -800 ml -1060 ml 500 ml Intake Oral 240 ml IV Total 1000 ml Output Urine Total 800 ml 1300 ml 500 ml # Bowel Movements 1 Result Diagram: 02/26/17 1145 02/26/17 1015 Imaging Last Impressions Abdomen X-Ray 02/25/17 1106 Signed Impressions: Service Date/Time: Saturday, February 25, 2017 11:56 - CONCLUSION: Bowel gas pattern is very similar to the prior study. Several loops of distended air-filled note small bowel. Contrast is now seen in the nondilated colon. Conor Campa MD Thyroid Ultrasound 02/24/17 0000 Signed Impressions: Service Date/Time: Friday, February 24, 2017 07:57 - CONCLUSION: Focally unremarkable sonographic appearance of the thyroid Nikolas Delgado MD Small Bowel X-Ray 02/23/17 0000 Signed Impressions: Service Date/Time: February 14:42 - CONCLUSION: Unremarkable exam with no evidence of obstruction. Karson Sequeira MD Abdomen/Pelvis CT 02/23/17 0000 Signed Impressions: Service Date/Time: February 19:31 - CONCLUSION: 1. The vascular structures are patent without evidence of any focal stenosis. Specifically, no evidence to suggest mesenteric ischemia. 2. Scattered diverticulosis of the descending and sigmoid colon. José Badillo MD Lower Extremity Ultrasound 02/22/17 1300 Signed Impressions: Service Date/Time: Wednesday, February 22, 2017 13:11 - CONCLUSION: Negative for deep venous thrombosis. Abrahan Villareal MD FACR Chest X-Ray 02/22/17 1252 Signed Impressions: Service Date/Time: Wednesday, February 22, 2017 13:42 - CONCLUSION: 1. No acute abnormality or significant interval change. Ted Pimentel MD Objective Remarks awake and alert, anicteric lungs- no rales regular rhythm abdomen- + mild distention but soft, tympanitic, + tenderness on palpation epigastric area, post op lap incision- dry, + hyperactive bowel sounds extremities- no calf swelling or tenderness neuro exam- non focal A/P Problem List: (1) Intractable abdominal pain ICD Code: R10.9 - Unspecified abdominal pain (2) Edema of left lower extremity ICD Code: R60.0 - Localized edema Assessment and Plan 41 years old female with extensive GI history Small bowel obstruction- recent explore lap for obstruction-/cholecystectomy and bowel resection done History of gallstone pancreatitis - . IVF - GS ff - antibiotics per GS - prn pain meds GIB- - H and H stable. no further episodes elevated tumor markers- CEA - IV PPI - GI ff - for EGD today HYpokalemia- corrected - K in main IVF - ff BMP Hypothyroidism- possibley autoimmune related- - antiperoxidase leelvated. - on further history- states history of hypothyroidism on 50 mcg daily - currently on IV synthroid 75 mcg daily - change to po when diet started - needs TSH recheck as OP in 4-6 weeks and OP ffup with an national business director Left LE edema- improved - negative for DVT - TEDs patient up and ambulating - no chemical prophylaxis with GIB Narciso Osborne MD Feb 27, 2017 10:37
[2017-02-27 12:00] VITALS: BP 122/79; PULSE 75; RESP 17; TEMP 97.1; O2SAT 95
[2017-02-27] MEDS ORDERED: DO NOT ADM ANY ANTICOAGULANT DRUGS PRN (16:03)
--- NOTE | 2017-02-27 16:04 | PD.PROCEDR ---
GI Procedure PROCEDURE PERFORMED EGD with biopsy followed by colonoscopy with snare polypectomy INDICATION FOR PROCEDURE Ileus, diarrhea, gastroparesis, history of small bowel obstruction, history of gastric cancer PROCEDURE: The procedure, risks and benefits were discussed with Ms. Griffin and informed consent was obtained. Anesthesia sedated her with Diprivan. She was placed in the left lateral decubitus position. EGD: The Pentax videoscope was introduced through the oropharynx and advanced to the second portion of the duodenum under direct visualization. Retroflexion was performed in the stomach. FINDINGS: The esophagus this was unremarkable and within normal limits The stomach there was a small ulcer with quite a bit of friability and erythema at the gastric cardia this was biopsied there was also patchy erythema in the antrum this too was biopsied The duodenum there was patchy erythema in the duodenal bulb this was biopsied otherwise unremarkable Colonoscopy: The Pentax videoscope was introduced through the rectum and advanced to cecum where the ileocecal valve and appendiceal orifice were identified. Retroflexion was performed in the rectum. Colonic prep was good FINDINGS: Colonic withdrawal time greater than 6 minutes as the scope was slowly withdrawn colonic mucosa was carefully inspected the patient was noted to have 2 small polyps in the rectum there were both excised using cold snare technique they were retrieved for further evaluation the patient was also noted to have mild diverticulosis of the sigmoid region colonic examination was otherwise unremarkable retroflexion did reveal moderate size internal hemorrhoids rectal examination otherwise unremarkable ESTIMATED BLOOD LOSS: None SPECIMENS REMOVED: Gastric, duodenal, colonic samples COMPLICATIONS: none IMPRESSION: Gastric ulcer Gastritis Duodenitis Colon polyps Diverticulosis Internal hemorrhoids PLAN: Await biopsies PPI Continue current supportive care Monitor labs Advance diet Colonoscopy in 5 years EGD in 2 months Skyler Solis MD Feb 27, 2017 16:04
[2017-02-27 20:00] VITALS: BP 112/75; PULSE 71; RESP 20; TEMP 98.4; O2SAT 98
[2017-02-27 23:53] LABS: THYROGLOB ABS 6 IU/mL (< OR = 1)
[2017-02-27 23:55] VITALS: BP 82/52
[2017-02-28] VITALS (10 sets, daily range): BP systolic 78–140; BP diastolic 53–95; PULSE 70–89; RESP 16–22; TEMP 96.3–97.6; O2SAT 95–98
[2017-02-28] MEDS ORDERED: MIDODRINE 5 MG TAB PO ONE (00:15)
[2017-02-28] MEDS ORDERED: MIDODRINE 5 MG TAB PO PRN (00:15)
[2017-02-28] MEDS ORDERED: SODIUM CHLORID 0.9% 500 ML INJ 500 ML IV ONE (02:15)
[2017-02-28] MEDS: ACETAMINOPHEN/HYDROcodone 325 MG/5 MG TAB PO PRN ×3 (03:16→17:41)
[2017-02-28] MEDS: D5-NS + KCL 20 MEQ INJ 1,000 ML IV SCH ×2 (03:18→17:16)
[2017-02-28 03:50] LABS: ENDOMYSIAL AB SCREEN ND (NEGATIVE); ENDOMYSIAL AB TITER ND (<1:5)
[2017-02-28] MEDS: LEVOTHYROXINE SODIUM 100 MCG VIAL IV PUSH SCH (05:34)
[2017-02-28] MEDS: METOCLOPRAMIDE HCL 10 MG/2 ML VIAL IM SCH ×3 (05:41→19:42)
[2017-02-28] MEDS: PANTOPRAZOLE SODIUM 40 MG VIAL IV PUSH SCH (08:01)
[2017-02-28] MEDS: LIPASE/PROTEASE/AMYLASE (12,000/38,000/60,000) CAP PO SCH ×3 (08:01→17:15)
[2017-02-28] MEDS: RIFAXIMIN 550 MG TAB PO SCH ×2 (08:02→19:45)
[2017-02-28] MEDS: DOCUSATE SODIUM 50 MG/SENNA 8.6 MG TAB PO SCH ×2 (08:03→19:41)
[2017-02-28] MEDS: SODIUM CHLORIDE 0.9% FLUSH 10 ML FLUSH IV FLUSH SCH ×2 (08:09→19:42)
[2017-02-28 08:34] LABS: HEMATOCRIT 36.1 % (35.0-46.0); HEMOGLOBIN 12.1 GM/DL (11.6-15.3); MEAN CELL VOLUME 97.4 FL (80.0-100.0); MEAN CORPUSCULAR HEMOGLOBIN 32.7 PG (27.0-34.0); MEAN CORPUSCULAR HGB CONC 33.6 % (32.0-36.0); MEAN PLATELET VOLUME 7.1 FL (7.0-11.0); PLATELET COUNT 786 TH/MM3 (150-450); RED BLOOD COUNT 3.71 MIL/MM3 (4.00-5.30); RED CELL DISTRIBUTION WIDTH 13.7 % (11.6-17.2); WHITE BLOOD COUNT 5.3 TH/MM3 (4.0-11.0)
[2017-02-28 09:01] LABS: ALBUMIN 2.2 GM/DL (3.4-5.0); AST (GOT) 16 U/L (15-37); BICARBONATE 23.7 MEQ/L (21.0-32.0); BLOOD UREA NITROGEN 3 MG/DL (7-18); CALCIUM 7.6 MG/DL (8.5-10.1); CHLORIDE 110 MEQ/L (98-107); CREATININE 0.55 MG/DL (0.50-1.00); GLOMERULAR FILTRATION RATE 121 ML/MIN (>89); GLUCOSE,RANDOM 77 MG/DL (74-106); SODIUM (NA) 140 MEQ/L (136-145)
[2017-02-28 09:02] LABS: ALT (GPT) 15 U/L (10-53)
[2017-02-28 09:05] LABS: ALKALINE PHOSPHATASE 107 U/L (45-117); TOTAL BILIRUBIN ADULT 0.2 MG/DL (0.2-1.0); TOTAL PROTEIN 5.1 GM/DL (6.4-8.2)
[2017-02-28] MEDS ORDERED: PROT40TA PO (10:33)
[2017-02-28] MEDS ORDERED: XIFA550T4 PO (10:33)
[2017-02-28] MEDS ORDERED: HYDR-3516 PO (10:33)
[2017-02-28] MEDS ORDERED: CREON12 PO (10:33)
--- NOTE | 2017-02-28 10:34 | HHI.DCPOC ---
Discharge Care Plan Diagnosis: (1) Small bowel obstruction (2) Gastritis (3) Gastric ulcer (4) Duodenitis (5) Colon polyps (6) Diverticulosis (7) Internal hemorrhoid Additional Problems You will need EGD repeated in 2 months and colonoscopy in 5 years. Goals to Promote Your Health * To prevent worsening of your condition and complications * To maintain your health at the optimal level Directions to Meet Your Goals Take your medications as prescribed Follow your dietary instruction Follow activity as directed Keep your appointments as scheduled Take your immunizations and boosters as scheduled If your symptoms worsen call your PCP, if no PCP go to Urgent Care Center or Emergency Room Smoking is Dangerous to Your Health. Avoid second hand smoke Call the 24-hour hour crisis hotline for domestic abuse at Jess Flor MD Feb 28, 2017 10:34
[2017-02-28] MEDS: MORPHINE SULFATE 2 MG/ML INJ IV PUSH PRN ×2 (10:50→19:45)
[2017-02-28] MEDS ORDERED: DIATRIZOATE MEGLUM/DIATRIZOATE SOD 9 ML CUP PO ONE ×2 (11:15→11:30)
--- NOTE | 2017-02-28 11:31 | HHI.PR ---
Subjective Remarks Follow-up for small bowel obstruction When patient was initially seen she denied any abdominal pain. She stated that she is tolerating oral intake. Patient also states had multiple bowel movements. Patient also stated that she is walking the hallway. She was very anxious to go home so at discharge was being placed. Twenty minutes later the nurse approached me and stated that patient complaining of severe abdominal pain and was very tearful. I examined the patient again and she stated that she had oral intake and developed severe right upper quadrant pain. Patient is tearful. She is moving in the bed. Denies any nausea or vomiting. Pain 10 out of 10. Positive for nausea but no emesis. Vitals were taken in stable with a blood pressure in the 140/95 heart rate 89 and good oxygenation on room air. Objective Vitals Vital Signs Date Time Temp Pulse Resp B/P (MAP) Pulse Ox O2 Delivery O2 Flow Rate FiO2 02/28/17 10:51 89 21 140/95 (110) 98 02/28/17 08:00 96.8 75 16 117/83 (94) 95 02/28/17 03:15 18 101/61 (74) 102/56 (71) 02/28/17 01:43 78/54 (62) 02/28/17 01:15 82/54 (63) 02/28/17 00:00 97.6 70 18 83/53 (63) 98 02/27/17 23:55 82/52 (62) 02/27/17 20:00 98.4 71 20 112/75 (87) 98 02/27/17 19:25 20 02/27/17 16:30 98.1 69 14 130/85 (100) 98 Room Air 02/27/17 16:15 69 14 130/83 (99) 98 Room Air 02/27/17 16:05 98.1 82 14 120/66 (84) 94 Room Air 02/27/17 12:00 95 02/27/17 12:00 97.1 75 17 122/79 (93) 95 I/O 02/27/17 02/27/17 02/27/17 02/28/17 02/28/17 02/28/17 07:00 15:00 23:00 07:00 15:00 23:00 Intake Total 1000 ml 1080 ml 1610 ml Output Total 500 ml Balance 500 ml 1080 ml 1610 ml Intake Oral 0 ml 360 ml IV Total 1000 ml 580 ml 1250 ml Other 500 ml Output Urine Total 500 ml # Voids 4 3 # Bowel Movements 0 0 Result Diagram: 02/28/17 0743 02/28/17 0743 Objective Remarks GENERAL:in NAD SKIN: Warm and dry. HEAD: Normocephalic. EYES: No scleral icterus. No injection or drainage. NECK: Supple, trachea midline. No JVD or lymphadenopathy. CARDIOVASCULAR: Regular rate and rhythm without murmurs, gallops, or rubs. RESPIRATORY: Breath sounds equal bilaterally. No accessory muscle use. GASTROINTESTINAL: Initial abdominal exam was soft mild tenderness in the right upper quadrant area. Negative for any peritoneal signs. MUSCULOSKELETAL: No cyanosis, or edema. BACK: Nontender without obvious deformity. No CVA tenderness. Reexamination of abdominal exam when he minutes later. Patient is tearful. abdominal exam soft, nondistended, diffuse tenderness to palpation. Negative for any peritoneal signs. Patient is not guarding. Medications and IVs Current Medications Sodium Chloride (NS Flush) 2 ml UNSCH PRN IV FLUSH FLUSH AFTER USING IV ACCESS Last administered on 02/22/17at 16:40; Start 02/22/17 at 13:00; Stop 02/22/17 at 17:06; Status DC Sodium Chloride 1,000 ml @ 100 mls/hr Q10H IV Last administered on 02/22/17at 13:15; Start 02/22/17 at 13:00; Stop 02/22/17 at 15:52; Status DC Ondansetron HCl (Zofran Inj) 4 mg ONCE ONCE IV PUSH Last administered on at 13:12; Start 02/22/17 at 13:00; Stop 02/22/17 at 13:01; Status DC Morphine Sulfate (Morphine Inj) 2 mg ONCE ONCE IV PUSH Last administered on 11/30at 13:13; Start 02/22/17 at 13:15; Stop 02/22/17 at 13:16; Status DC Morphine Sulfate (Morphine Inj) 2 mg ONCE ONCE IV PUSH Last administered on 11/30at 13:13; Start 02/22/17 at 13:15; Stop 02/22/17 at 13:16; Status DC Morphine Sulfate (Morphine Inj) 2 mg ONCE ONCE IV PUSH Last administered on 11/30at 14:27; Start 02/22/17 at 14:15; Stop 02/22/17 at 14:16; Status DC Morphine Sulfate (Morphine Inj) 2 mg ONCE ONCE IV PUSH Last administered on 11/30at 14:27; Start 02/22/17 at 14:15; Stop 02/22/17 at 14:16; Status DC Iohexol (Omnipaque 350 Inj) 80 ml STK-MED ONCE IVCONTRAST Last administered on 02/22/17at 14:51; Start 02/22/17 at 14:51; Stop 02/22/17 at 14:52; Status DC Cefepime HCl 2000 mg/Sodium Chloride 100 ml @ 200 mls/hr ONCE ONCE IV Last administered on 02/22/17at 15:57; Start 02/22/17 at 15:00; Stop 02/22/17 at 15:29 ; Status DC Potassium Chloride/Sodium Chloride 1,000 ml @ 200 mls/hr Q5H ONCE IV Last administered on 02/22/17at 16:40; Start 02/22/17 at 15:30; Stop 02/22/17 at 20:29 ; Status DC Lorazepam (Ativan Inj) 1 mg ONCE ONCE IV PUSH Last administered on 02/22/17at 15:41; Start 02/22/17 at 15:30; Stop 02/22/17 at 15:35; Status DC Sodium Chloride (NS Flush) 2 ml UNSCH PRN IV FLUSH FLUSH AFTER USING IV ACCESS ; Start 02/22/17 at 17:00 Sodium Chloride (NS Flush) 2 ml BID IV FLUSH Last administered on 02/23/17at 21: 13; Start 02/22/17 at 21:00 Ondansetron HCl (Zofran Inj) 4 mg Q6H PRN IVP NAUSEA OR VOMITING; Start at 17:00 Naloxone HCl (Narcan Inj) 0.4 mg UNSCH PRN IV PUSH SEE LABEL COMMENTS; Start at 17:00 Senna/Docusate Sodium (Adele-Colace) 1 tab BID PO Last administered on at 08:03; Start 02/22/17 at 21:00 Magnesium Hydroxide (Milk Of Magnesia Liq) 30 ml Q12H PRN PO Mild constipation ; Start 02/22/17 at 17:00 Sennosides (Senokot) 17.2 mg Q12H PRN PO Moderate constipation; Start 02/22/17 at 17:00 Bisacodyl (Dulcolax Supp) 10 mg DAILY PRN RECTAL SEVERE CONSITIPATION; Start at 17:00 Lactulose (Lactulose Liq) 30 ml DAILY PRN PO SEVERE CONSITIPATION; Start at 17:00 Acetaminophen/ Hydrocodone Bitart ([place] 5-325 Mg) 1 tab Q6H PRN PO pain 1-10 Last administered on 02/28/17at 08:03; Start 02/22/17 at 18:00 Morphine Sulfate (Morphine Inj) 2 mg Q3H PRN IV PUSH pain >5 while npo Last administered on 02/28/17at 10:50; Start 02/22/17 at 21:00 Lorazepam (Ativan Inj) 1 mg ONCE ONCE IV PUSH Last administered on 02/22/17at 22:00; Start 02/22/17 at 21:45; Stop 02/22/17 at 21:46; Status DC Piperacillin Sod/ Tazobactam Sod 50 ml @ 100 mls/hr Q6H IV ; Start 02/22/17 at 21:45; Stop 02/22/17 at 21:48; Status DC Levofloxacin/ Dextrose 150 ml @ 100 mls/hr Q24H IV Last administered on at 21:08; Start 02/22/17 at 22:00; Stop 02/25/17 at 11:54; Status DC Metronidazole 100 ml @ 100 mls/hr Q6H IV Last administered on 02/25/17at 08:28 ; Start 02/22/17 at 22:00; Stop 02/25/17 at 11:54; Status DC Lactated Ringer's 1,000 ml @ 83 mls/hr Q12H3M IV Last administered on at 04:31; Start 02/23/17 at 10:00; Stop 02/24/17 at 16:52; Status DC Benzocaine/Menthol (Chloraseptic Leandro) 1 lozenge UNSCH PRN BUCCAL SORE THROAT Last administered on 02/24/17at 13:16; Start 02/23/17 at 10:00 Pantoprazole Sodium (Protonix Inj) 40 mg DAILY IV PUSH Last administered on at 08:01; Start 02/23/17 at 11:00 Diatrizoate Meglum/ Diatrizoate Sod ( Gastroview Liq) 240 ml STK-MED ONCE NG Last administered on 02/23/17at 15:01; Start 02/23/17 at 15:01; Stop 02/23/17 at 15:02; Status DC Iohexol (Omnipaque 350 Inj) 100 ml STK-MED ONCE IVCONTRAST Last administered on 02/23/17at 19:50; Start 02/23/17 at 19:50; Stop 02/23/17 at 19:51; Status DC Levothyroxine Sodium (Synthroid Inj) 50 mcg DAILY@06 IV PUSH ; Start 02/24/17 at 10:00; Stop 02/24/17 at 10:28; Status DC Levothyroxine Sodium (Synthroid Inj) 75 mcg DAILY@06 IV PUSH Last administered on 02/28/17at 05:34; Start 02/24/17 at 10:30 Potassium Chloride/Dextrose/ Sod Cl 1,000 ml @ 84 mls/hr [id number] IV Last administered on 02/28/17at 03:18; Start 02/24/17 at 17:00 Potassium Chloride 100 ml @ 100 mls/hr BOLUS ONCE IV Last administered on 01/30at 18:07; Start 02/24/17 at 17:00; Stop 02/24/17 at 17:59; Status DC Amylase/Lipase/ Protease (Creon 12-38-60) 1 cap TID PO Last administered on at 08:01; Start 02/25/17 at 09:00 Potassium Chloride 100 ml @ 100 mls/hr Q1H IV Last administered on 02/25/17at 17:03; Start 02/25/17 at 11:30; Stop 02/25/17 at 14:29; Status DC Magnesium Citrate (Citroma Liq) 300 ml ONCE ONCE PO Last administered on at 17:13; Start 02/26/17 at 17:00; Stop 02/26/17 at 17:01; Status DC Magnesium Citrate (Citroma Liq) 300 ml ONCE ONCE PO Last administered on 1/14/ 18at 18:41; Start 02/26/17 at 19:00; Stop 02/26/17 at 19:01; Status DC Metoclopramide HCl (Reglan Inj) 10 mg Q8HR IM Last administered on 02/27/17at 20 :25; Start 02/25/17 at 22:00 Rifaximin (Xifaxan) 550 mg BID PO Last administered on 02/28/17at 08:02; Start 02/25/17 at 21:00 Lactated Ringer's 1,000 ml @ 30 mls/hr Q24H PRN IV SEE LABEL COMMENTS; Start at 02:15; Stop 03/02/17 at 02:14 Povidone Iodine (Betadine 5% Antisepsis Kit) 1 applic CLASSIFICATION ANALYST PRN EACH NARE SEE LABEL COMMENTS; Start 02/27/17 at 02:15; Stop 03/02/17 at 02:14 Chlorhexidine Gluconate (Chlorhexidine 2% Cloth) 3 pack CLASSIFICATION ANALYST PRN TOPICAL SEE LABEL COMMENTS; Start 02/27/17 at 02:15; Stop 03/02/17 at 02:14 Miscellaneous Information ALL NURSING DEPARTME... UNSCH PRN .XX SEE LABEL COMMENTS; Start 02/27/17 at 16:03; Stop 02/28/17 at 16:02 Midodrine (Proamatine) 10 mg TID PRN PO hypotention; Start 02/28/17 at 00:15 Midodrine (Proamatine) 10 mg ONCE ONCE PO Last administered on 02/28/17at 00:24 ; Start 02/28/17 at 00:15; Stop 02/28/17 at 00:19; Status DC Sodium Chloride 500 ml @ 500 mls/hr BOLUS ONCE IV Last administered on at 02:15; Start 02/28/17 at 02:15; Stop 02/28/17 at 03:14; Status DC Diatrizoate Meglum/ Diatrizoate Sod ( Gastroview Liq) 18 ml ONCE ONCE PO ; Start 02/28/17 at 11:15; Stop 02/28/17 at 11:16; Status Cancel A/P Problem List: (1) Intractable abdominal pain ICD Code: R10.9 - Unspecified abdominal pain (2) Edema of left lower extremity ICD Code: R60.0 - Localized edema Assessment and Plan 41 years old female with extensive GI history Small bowel obstruction- recent explore lap for obstruction-/cholecystectomy and bowel resection done History of gallstone pancreatitis -Status post EGD done on 02/27 showing gastric ulcer, gastritis, duodenitis, colon polyps, diverticulosis, internal hemorrhoids. GI recommend EGD in 2 months and colonoscopy in 5 years. -Patient was doing well and was going to be discharged since she had a bowel movement, tolerating oral intake, pain control by 20 minutes later she started complaining of severe abdominal pain. -There are no peritoneal signs, labs reviewed this morning which were relatively normal. Will get a stat KUB and CT scan the abdomen/pelvis. -Currently on rifampin and Creon by GI. GIB- - H and H stable. no further episodes elevated tumor markers- CEA - See treatment as above. HYpokalemia- corrected - Corrected. Hypothyroidism- possible autoimmune related- - antiperoxidase elevated. - on further history- states history of hypothyroidism on 50 mcg daily - currently on IV synthroid 75 mcg daily - change to po when diet started - needs TSH recheck as OP in 4-6 weeks and OP ffup with an slat twister Left LE edema- improved - negative for DVT - TEDs patient up and ambulating - no chemical prophylaxis with GIB Discharge Planning Due to increased abdominal pain stat CT scan of the abdomen/pelvis and KUB order. Pending results. Discussed case with patient's nurse. >35 minutes was spent with patient regards to patient's management. Jess Flor MD Feb 28, 2017 11:31
--- NOTE | 2017-02-28 11:56 | RADRPT ---
EXAM DATE/TIME: 02/28/2017 10:50 [facility] COMPARISON: ABDOMEN FLAT & UPRIGHT, February 25, 2017, 11:56. INDICATIONS : Abdomen pain. Patient just developed severe abdomen pain after eating. MEDICAL HISTORY : Carcinoma, gastric. Lupus. Cardiovascular disease. Pancreatitis. Diverticulitis. Hiatal hernia SURGICAL HISTORY : Appendectomy. Cholecystectomy ENCOUNTER: Subsequent ACUITY: 1 week PAIN SCORE: 10/10 LOCATION: Bilateral Abdomen. FINDINGS: 2 supine frontal views of the abdomen demonstrate air distended small and large bowel without a trans ition point appreciated. Stomach is also mildly distended. The dilated small bowel segments present o n the prior study are no longer seen. Cholecystectomy clips are present. No organomegaly or concernin g calcifications are identified. Bones demonstrate no acute finding. CONCLUSION: Mild diffuse gaseous distention of the small and large bowel not in a pattern to suggest obstruction. Nikolas Washington MD on February 28, 2017 at 11:51 Board Certified Radiologist. This report was verified electronically.
--- NOTE | 2017-02-28 14:24 | HHI.GIFU ---
Subjective Remarks Pt resting in bed. WAs ready to get d/c and had 1/2 pancake, 1/2 senegalese muffin for breakfast and fewminutes later onset severe epigastric pain. Pain has subsided. + flatus, + BM somewhat formed this am (Twyla Reyes) Objective Vitals I&O Vital Signs Date Time Temp Pulse Resp B/P (MAP) Pulse Ox O2 Delivery O2 Flow Rate FiO2 02/28/17 12:00 96.3 77 17 119/78 (92) 95 02/28/17 10:51 89 21 140/95 (110) 98 02/28/17 08:00 96.8 75 16 117/83 (94) 95 02/28/17 03:15 18 101/61 (74) 102/56 (71) 02/28/17 01:43 78/54 (62) 02/28/17 01:15 82/54 (63) 02/28/17 00:00 97.6 70 18 83/53 (63) 98 02/27/17 23:55 82/52 (62) 02/27/17 20:00 98.4 71 20 112/75 (87) 98 02/27/17 19:25 20 02/27/17 16:30 98.1 69 14 130/85 (100) 98 Room Air 02/27/17 16:15 69 14 130/83 (99) 98 Room Air 02/27/17 16:05 98.1 82 14 120/66 (84) 94 Room Air I/O 02/27/17 02/27/17 02/27/17 02/28/17 02/28/17 02/28/17 07:00 15:00 23:00 07:00 15:00 23:00 Intake Total 1000 ml 1080 ml 1610 ml Output Total 500 ml Balance 500 ml 1080 ml 1610 ml Intake Oral 0 ml 360 ml IV Total 1000 ml 580 ml 1250 ml Other 500 ml Output Urine Total 500 ml # Voids 4 3 # Bowel Movements 0 0 Laboratory Laboratory Tests Test 02/28/17 07:43 White Blood Count 5.3 Red Blood Count 3.71 Hemoglobin 12.1 Hematocrit 36.1 Mean Corpuscular Volume 97.4 Mean Corpuscular Hemoglobin 32.7 Mean Corpuscular Hemoglobin Concent 33.6 Red Cell Distribution Width 13.7 Platelet Count 786 Mean Platelet Volume 7.1 Blood Urea Nitrogen 3 Creatinine 0.55 Random Glucose 77 Total Protein 5.1 Albumin 2.2 Calcium Level 7.6 Alkaline Phosphatase 107 Aspartate Amino Transf (AST/SGOT) 16 Alanine Aminotransferase (ALT/SGPT) 15 Total Bilirubin 0.2 Sodium Level 140 Potassium Level 4.2 Chloride Level 110 Carbon Dioxide Level 23.7 Anion Gap 6 Estimat Glomerular Filtration Rate 121 Lipase 255 Date/Time Source Procedure Growth Status 02/22/17 15:45 Blood Peripheral Aerobic Blood Culture - Final NO GROWTH IN 5 DAYS Complete 02/22/17 15:45 Blood Peripheral Anaerobic Blood Culture - Final NO GROWTH IN 5 DAYS Complete 02/26/17 09:00 Stool Stool - Final Complete 02/22/17 13:55 Urine Clean Catch Urine Culture - Final NO GROWTH IN 48 HOURS. Complete Imaging Last Impressions Abdomen X-Ray 02/28/17 0000 Signed Impressions: Service Date/Time: Tuesday, February 28, 2017 10:50 - CONCLUSION: Mild diffuse gaseous distention of the small and large bowel not in a pattern to suggest obstruction. Nikolas Washington MD Thyroid Ultrasound 02/24/17 0000 Signed Impressions: Service Date/Time: Friday, February 24, 2017 07:57 - CONCLUSION: Focally unremarkable sonographic appearance of the thyroid Nikolas Delgado MD Small Bowel X-Ray 02/23/17 0000 Signed Impressions: Service Date/Time: February 14:42 - CONCLUSION: Unremarkable exam with no evidence of obstruction. Karson Sequeira MD Abdomen/Pelvis CT 02/23/17 0000 Signed Impressions: Service Date/Time: February 19:31 - CONCLUSION: 1. The vascular structures are patent without evidence of any focal stenosis. Specifically, no evidence to suggest mesenteric ischemia. 2. Scattered diverticulosis of the descending and sigmoid colon. José Badillo MD Lower Extremity Ultrasound 02/22/17 1300 Signed Impressions: Service Date/Time: Wednesday, February 22, 2017 13:11 - CONCLUSION: Negative for deep venous thrombosis. Abrahan Villareal MD FACR Chest X-Ray 02/22/17 1252 Signed Impressions: Service Date/Time: Wednesday, February 22, 2017 13:42 - CONCLUSION: 1. No acute abnormality or significant interval change. Ted Pimentel MD Physical Exam HEENT: Normocephalic; atraumatic CHEST: Even/unlabored CARDIAC: RRR. ABDOMEN: Distended, soft, diffuse tenderness, bowel sounds active EXTREMITIES: No clubbing, cyanosis, or edema. SKIN: Normal; no rash; no jaundice. LOGISTICAL ENGINEER: No focal deficits; alert and oriented times three. (Twyla Reyes) Assessment and Plan Plan ASSESSMENT - Post-op ileus- Pt recently discharged from a hospital in [facility] S/P exploratory laparotomy with colectomy for small bowel obstruction. Pt came to [place] with complaints of abdominal pain, nausea, and vomiting. Originally with NGT tube with feces appearing output. GS following. SBFT unremarkable. CTA abdomen without vascular abnormalities. s/p EGD and colonoscopy found gastric ulcer, duodenitis, colon polyps, diverticulosis, hemorrhoids. Pt with continued abdominal distension. pain improved but returned after eating breakfast today.diarrhea improving. KUB 02/28/17 gaseous distention sm bowel but no obstruction. CT abd pending. on creon. will get carafate. - Diarrhea- neg for cryptosporidia, giardia - Significant GI history- Recurrent H. pylori, stage 1 stomach cancer, gastroparesis PLAN - carafate before meals - await CT abd - Continue Protonix - Continue Creon - Monitor labs - Supportive care - Further recommendations to follow based on results of above Pt seen by myself and Dr Solis and this note written on his behalf (Twyla Reyes) Physician Comments Patient seen and examined Agree with above Continue with current supportive care Monitor labs We'll obtain a gastric emptying scan (Skyler Solis MD) Twyla Reyes Feb 28, 2017 14:24 Skyler Solis MD Mar 01, 2017 01:00
[2017-02-28] MEDS ORDERED: IOHEXOL 350 MG/ML 10 ML VIAL (for RAD DIAG) IVCONTRAST ONE (15:22)
[2017-02-28 15:45] LABS: FECAL FAT COLLECTION DURATION Random h; FECAL FAT TOTAL WEIGHT 2 g
--- NOTE | 2017-02-28 15:50 | RADRPT ---
EXAM DATE/TIME: 02/28/2017 15:14 [facility] COMPARISON: CT ABDOMEN & PELVIS W CONTRAST, February 22, 2017, 14:35. CTA ABDOMEN & PELVIS W 3D RECON, February, 19:31. INDICATIONS : Abdomen pain and bloating IV CONTRAST: 71 cc Omnipaque 350 (iohexol) IV ORAL CONTRAST: Prescribed oral contrast ingested. RADIATION DOSE: 5.12 CTDIvol (mGy) MEDICAL HISTORY : Cardiovascular disease. Diverticulitis. Pancreatitis. Hiatal hernia, Stomach cancer SURGICAL HISTORY : Appendectomy. Cholecystectomy. Tubal ligation. ENCOUNTER: Initial ACUITY: 1 day PAIN SCALE: 9/10 LOCATION: Abdomen TECHNIQUE: Volumetric scanning of the abdomen and pelvis was performed. Using automated exposure control and ad justment of the mA and/or kV according to patient size, radiation dose was kept as low as reasonably achievable to obtain optimal diagnostic quality images. DICOM format image data is available electro nically for review and comparison. FINDINGS: The limited portion of the lung base visualized demonstrates minimal dependent atelectasis. There min imal basilar effusion. The appearance of the liver, spleen, pancreas, adrenal glands and kidneys are intact. The examination does demonstrate a small amount of ascites within the upper abdomen. The visualized loops of small and large bowel within the upper abdomen are unremarkable. Imaging through the pelvis demonstrates a small amount of ascites within the pelvis. No iliac or ingu inal adenopathy is seen. The loops of small large bowel the pelvis are unremarkable. The visualized bony structures are intact. CONCLUSION: 1. There is a small amount of abdominal ascites. This is very minimal. There is gaseous distention of portions of the colon. No findings to indicate a bowel obstruction are evident. 2. The patient is post cholecystectomy. 3. Findings are similar to the patient's previous examinations of 02/23/17 and 02/22/17. 4. Minimal bilateral pleural effusions with minimal basilar atelectasis. Zay Villareal MD on February 28, 2017 at 15:38 Board Certified Radiologist. This report was verified electronically.
[2017-02-28] MEDS: SUCRALFATE 1 GM/10 ML CUP PO SCH (17:15)
[2017-02-28] MEDS ORDERED: SIMETHICONE 125 MG CHEWABLE TAB PO ONE (20:30)
[2017-02-28 23:53] LABS: ALK PHOS BONE (ISOENZYMES) 42 % (28-66); ALK PHOS INTESTINE (ISOENZYME) 0 % (1-24); ALK PHOS LIVER (ISOENZYME) 58 % (25-69); ALK PHOS PLACENTAL ISOENZYME 0 % (UNDETECTABLE)
[2017-03-01] VITALS: BP 87/53; PULSE 70; RESP 20; TEMP 98.6; O2SAT 96
[2017-03-01 03:49] LABS: MITOCHONDRIAL ABS LESS THAN 20.0 U (<=20.0)
[2017-03-01 04:00] VITALS: BP 102/66; PULSE 71; RESP 18; TEMP 97.9; O2SAT 98
[2017-03-01] MEDS: METOCLOPRAMIDE HCL 10 MG/2 ML VIAL IM SCH ×2 (05:29→14:00)
[2017-03-01] MEDS: D5-NS + KCL 20 MEQ INJ 1,000 ML IV SCH (05:46)
[2017-03-01] MEDS: LEVOTHYROXINE SODIUM 100 MCG VIAL IV PUSH SCH (05:48)
[2017-03-01] MEDS: ACETAMINOPHEN/HYDROcodone 325 MG/5 MG TAB PO PRN ×2 (05:49→14:38)
[2017-03-01] MEDS: RIFAXIMIN 550 MG TAB PO SCH (07:42)
[2017-03-01] MEDS: PANTOPRAZOLE SODIUM 40 MG VIAL IV PUSH SCH (07:43)
[2017-03-01] MEDS: DOCUSATE SODIUM 50 MG/SENNA 8.6 MG TAB PO SCH (07:43)
[2017-03-01] MEDS: SUCRALFATE 1 GM/10 ML CUP PO SCH ×3 (07:43→14:37)
[2017-03-01] MEDS: LIPASE/PROTEASE/AMYLASE (12,000/38,000/60,000) CAP PO SCH ×2 (07:43→11:47)
[2017-03-01] MEDS: SODIUM CHLORIDE 0.9% FLUSH 10 ML FLUSH IV FLUSH SCH (07:43)
[2017-03-01 08:00] VITALS: BP 96/56; PULSE 70; RESP 17; TEMP 97.7; O2SAT 94
[2017-03-01 11:00] VITALS: O2SAT 94
[2017-03-01 12:00] VITALS: BP 114/70; PULSE 69; RESP 18; TEMP 97.5; O2SAT 97
[2017-03-01] MEDS ORDERED: METOCLOPRAMIDE HCL 10 MG/2 ML VIAL IV ONE (14:07)
--- NOTE | 2017-03-01 14:20 | RADRPT ---
EXAM DATE/TIME: 03/01/2017 11:49 [facility] COMPARISON: No previous studies available for comparison. INDICATIONS : Abdominal pain, nausea and vomiting. DOSE: 1.0 mCi Tc99m Sulfur Colloid Labeled Whole egg PO MEDICATONS: 1.) 5 mg Reglan IV at 90 minutes IMAGIN hrs MEDICAL HISTORY : Myocardial infarction. Stomach cancer. SURGICAL HISTORY : Pacemaker. Tubal ligation. Cholecystectomy. ENCOUNTER: Initial ACUITY: 1 day PAIN SCALE: 3/10 LOCATION: Bilateral Abdomen. TECHNIQUE: Following the oral ingestion of radiotracer-labeled meal, dynamic sequential images in the [place] projec tion were acquired with simultaneous computer acquisition. The data set was decay-corrected. FINDINGS: LAG PHASE: There is <90> minutes before onset of gastric emptying. EMPTYING: Gastric emptying kinetics are linear. The decay-corrected, back-extrapolated half-time of emptying i s <over two hours. (Normal for this lab is 45- 90 minutes.) INTERVENTION: Reglan was given at 90 minutes and there does appear to be some response to Reglan CONCLUSION: Very delayed gastric emptying with essentially no emptying prior to administration of Reglan. Michi Zamora MD on March 01, 2017 at 14:16 Board Certified Radiologist. This report was verified electronically.
--- NOTE | 2017-03-01 14:24 | HHI.GIFU ---
Subjective Remarks Patient going for gastric emptying study Completed without complications and back in room Awake sitting up in the bed states she's feeling somewhat better. (Alma Rosa Castillo) Objective Vitals I&O Vital Signs Date Time Temp Pulse Resp B/P (MAP) Pulse Ox O2 Delivery O2 Flow Rate FiO2 03/01/17 12:00 97.5 69 18 114/70 (85) 97 03/01/17 11:00 94 03/01/17 08:00 97.7 70 17 96/56 (69) 94 03/01/17 04:00 97.9 71 18 102/66 (78) 98 03/01/17 00:00 98.6 70 20 87/53 (64) 96 02/28/17 20:00 96.7 80 22 101/61 (74) 96 02/28/17 17:47 96 21 02/28/17 16:00 96.5 71 16 100/68 (79) 96 I/O 02/28/17 02/28/17 02/28/17 03/01/17 03/01/17 03/01/17 07:00 15:00 23:00 07:00 15:00 23:00 Intake Total 1610 ml 1231 ml 360 ml Balance 1610 ml 1231 ml 360 ml Intake Oral 360 ml 240 ml 360 ml IV Total 1250 ml 991 ml # Voids 3 3 3 # Bowel Movements 0 0 2 Laboratory Date/Time Source Procedure Growth Status 02/22/17 15:45 Blood Peripheral Aerobic Blood Culture - Final NO GROWTH IN 5 DAYS Complete 02/22/17 15:45 Blood Peripheral Anaerobic Blood Culture - Final NO GROWTH IN 5 DAYS Complete 02/26/17 09:00 Stool Stool - Final Complete 02/22/17 13:55 Urine Clean Catch Urine Culture - Final NO GROWTH IN 48 HOURS. Complete Imaging Last Impressions Abdomen/Pelvis CT 02/28/17 0000 Signed Impressions: Service Date/Time: Tuesday, February 28, 2017 15:14 - CONCLUSION: 1. There is a small amount of abdominal ascites. This is very minimal. There is gaseous distention of portions of the colon. No findings to indicate a bowel obstruction are evident. 2. The patient is post cholecystectomy. 3. Findings are similar to the patient's previous examinations of 02/23/17 and 02/22/17. 4. Minimal bilateral pleural effusions with minimal basilar atelectasis. Zay Villareal MD Abdomen X-Ray 02/28/17 0000 Signed Impressions: Service Date/Time: Tuesday, February 28, 2017 10:50 - CONCLUSION: Mild diffuse gaseous distention of the small and large bowel not in a pattern to suggest obstruction. Nikolas Washington MD Thyroid Ultrasound 02/24/17 0000 Signed Impressions: Service Date/Time: Friday, February 24, 2017 07:57 - CONCLUSION: Focally unremarkable sonographic appearance of the thyroid Nikolas Delgado MD Small Bowel X-Ray 02/23/17 0000 Signed Impressions: Service Date/Time: February 14:42 - CONCLUSION: Unremarkable exam with no evidence of obstruction. Karson Sequeira MD Lower Extremity Ultrasound 02/22/17 1300 Signed Impressions: Service Date/Time: Wednesday, February 22, 2017 13:11 - CONCLUSION: Negative for deep venous thrombosis. Abrahan Villareal MD FACR Chest X-Ray 02/22/17 1252 Signed Impressions: Service Date/Time: Wednesday, February 22, 2017 13:42 - CONCLUSION: 1. No acute abnormality or significant interval change. Ted Pimentel MD Physical Exam HEENT: Normocephalic; atraumatic, slim body build CHEST: Even/unlabored CARDIAC: RRR. ABDOMEN: Distended, soft, diffuse tenderness, bowel sounds active EXTREMITIES: No clubbing, cyanosis, or edema. SKIN: Normal; no rash; no jaundice. LABORATORY SPECIALIST: No focal deficits; alert and oriented times three., Mild anxiety, hopes to go home (Alma Rosa Castillo) Assessment and Plan Plan History - Post-op ileus- Pt recently discharged from a hospital in [facility] S/P exploratory laparotomy with colectomy for small bowel obstruction. Pt came to [facility] with complaints of abdominal pain, nausea, and vomiting. Originally with NGT tube with feces appearing output. GS following. SBFT unremarkable. CTA abdomen without vascular abnormalities. - Anemia stable at 12.1, probable secondary to chronic disease, no active bleeding noted s/p EGD and colonoscopy found gastric ulcer, duodenitis, colon polyps, diverticulosis, hemorrhoids. Pt with continued abdominal distension. KUB 02/28/17 gaseous distention , Possible gastroparesis, need to rule out sm bowel but no obstruction. - Diarrhea- neg for cryptosporidia, giardia - Significant GI history- Recurrent H. pylori, stage 1 stomach cancer, gastroparesis Gastric emptying study shows some delay in slowing, responded to Reglan PLAN - Checked gastric emptying study, Reglan 10 mg before meals and at bedtime ordered - carafate before meals - Protonix, antireflux regimen - Creon - Probiotics, fiber supplement and diet, - Follow up in GI office 1-2 weeks after discharge which appears to be planned for this afternoon. GI will sign off - Supportive care - Further recommendations to follow based on results of above Patient was evaluated, note written on behalf of Dr. Solis (Alma Rosa Castillo) Physician Comments Patient seen and examined Agree with above Continue with current supportive care Monitor labs (Skyler Solis MD) Alma Rosa Castillo Mar 01, 2017 14:24 Skyler Solis MD Mar 02, 2017 00:57
[2017-03-01] MEDS ORDERED: SUCR1S PO (15:04)
[2017-03-01] MEDS ORDERED: LEVO50TA4 PO (15:04)
[2017-03-01] MEDS ORDERED: METO10TA PO (15:05)
--- NOTE | 2017-03-01 15:07 | HHI.DS ---
Discharge Summary Admission Date Feb 22, 2017 at 15:47 Discharge Date: Mar 01, 2017 Admitting Diagnosis ABDOMINAL PAIN (1) Gastroparesis ICD Code: K31.84 - Gastroparesis Diagnosis: Principal (2) Edema of left lower extremity ICD Code: R60.0 - Localized edema Diagnosis: Secondary (3) Diverticulosis ICD Code: K57.90 - Diverticulosis of intestine, part unspecified, without perforation or abscess without bleeding Diagnosis: Secondary (4) Gastric ulcer ICD Code: K25.9 - Gastric ulcer, unspecified as acute or chronic, without hemorrhage or perforation Diagnosis: Principal (5) Small bowel obstruction ICD Code: K56.609 - Unspecified intestinal obstruction, unspecified as to partial versus complete obstruction Diagnosis: Principal (6) Gastritis ICD Code: K29.70 - Gastritis, unspecified, without bleeding Diagnosis: Principal (7) Duodenitis ICD Code: K29.80 - Duodenitis without bleeding (8) Internal hemorrhoid ICD Code: K64.8 - Other hemorrhoids Diagnosis: Secondary (9) Colon polyps ICD Code: K63.5 - Polyp of colon Diagnosis: Secondary Procedures See hospital course. Brief History - From Admission This is a 41-year-old female patient with a known medical history of diverticulitis, stage I stomach cancer, gastroparesis, Lupus and anxiety who presented to the ED with complaints of intractable abdominal pain, nausea and vomiting 2 weeks. Patient states that since February 04 and she has been experiencing lower abdominal pain and inability to tolerate PO intake. She states that the pain is located in her mid-umbilical area and is characteristic of a stabbing type pain, rated a ten out of ten on pain scale, worsens with activity and movement. Patient states that she has been prescribed oxycodone for the abdominal pain which seems to help intermittently. Does admit to subjective fevers and chills at home, doesn't remember exactly how high. She does admit to positive bowel movements, diarrhea and presence of black stool. Last BM was this a.m. Patient states that her abdomen has been progressively getting more distended, with worsening symptoms for the last four days. He states she has not ate or drank anything for the last four days well. Patient does admit to a history of polyps and diverticulitis. Follows with Dr. Hernandez and in the outpatient setting. Last underwent a EGD and colonoscopy one half years ago which was reportedly negative. CBC/BMP: 02/28/17 0743 02/28/17 0743 Significant Findings Laboratory Tests Test 02/28/17 07:43 Red Blood Count 3.71 MIL/MM3 (4.00-5.30) Platelet Count 786 TH/MM3 (150-450) Blood Urea Nitrogen 3 MG/DL (7-18) Total Protein 5.1 GM/DL (6.4-8.2) Albumin 2.2 GM/DL (3.4-5.0) Calcium Level 7.6 MG/DL (8.5-10.1) Chloride Level 110 MEQ/L (98-107) Imaging Last Impressions Gastric Emptying Nuclear Medicine 03/01/17 0000 Signed Impressions: Service Date/Time: Wednesday, March 01, 2017 11:49 - CONCLUSION: Very delayed gastric emptying with essentially no emptying prior to administration of Reglan. Michi Zamora MD Abdomen/Pelvis CT 02/28/17 0000 Signed Impressions: Service Date/Time: Tuesday, February 28, 2017 15:14 - CONCLUSION: 1. There is a small amount of abdominal ascites. This is very minimal. There is gaseous distention of portions of the colon. No findings to indicate a bowel obstruction are evident. 2. The patient is post cholecystectomy. 3. Findings are similar to the patient's previous examinations of 02/23/17 and 02/22/17. 4. Minimal bilateral pleural effusions with minimal basilar atelectasis. Zay Villareal MD Abdomen X-Ray 02/28/17 0000 Signed Impressions: Service Date/Time: Tuesday, February 28, 2017 10:50 - CONCLUSION: Mild diffuse gaseous distention of the small and large bowel not in a pattern to suggest obstruction. Nikolas Washington MD Thyroid Ultrasound 02/24/17 0000 Signed Impressions: Service Date/Time: Friday, February 24, 2017 07:57 - CONCLUSION: Focally unremarkable sonographic appearance of the thyroid Nikolas Delgado MD Small Bowel X-Ray 02/23/17 0000 Signed Impressions: Service Date/Time: February 14:42 - CONCLUSION: Unremarkable exam with no evidence of obstruction. Karson Sequeira MD Lower Extremity Ultrasound 02/22/17 1300 Signed Impressions: Service Date/Time: Wednesday, February 22, 2017 13:11 - CONCLUSION: Negative for deep venous thrombosis. Abrahan Villareal MD FACR Chest X-Ray 02/22/17 1252 Signed Impressions: Service Date/Time: Wednesday, February 22, 2017 13:42 - CONCLUSION: 1. No acute abnormality or significant interval change. Ted Pimentel MD PE at Discharge GENERAL:in NAD and is smiling. CARDIOVASCULAR: Regular rate and rhythm without murmurs, gallops, or rubs. RESPIRATORY: Breath sounds equal bilaterally. No accessory muscle use. GASTROINTESTINAL: Soft and nondistended. Biliary Mild diffuse tenderness palpation. Negative for any peritoneal signs. MUSCULOSKELETAL: No cyanosis, or edema. BACK: Nontender without obvious deformity. No CVA tenderness. Pt update on day of discharge Follow-up for abdominal pain. Patient denies any abdominal pain. She stated that she feels great and wants to go home. Patient stated that she figured it out. She stated that if she eats a lot and heavy food that's when she started having abdominal pain. She stated that she knows her trigger. She stated that she tolerated oral intake this morning. She had a gastric emptying study done today. Denied any fevers or chills. Deny any nausea vomiting. Discussed case with Alma Rosa Hill and she stated okay for discharge today. Discussed case with patient's nurse Annamaria. Hospital Course 41 years old female with extensive GI history Small bowel obstruction- recent explore lap for obstruction-/cholecystectomy and bowel resection done History of gallstone pancreatitis -Patient initially had a KUB done which showed possible small bowel obstruction. GI and general surgeon consulted. -Patient had EGD done on 02/27 showing gastric ulcer, gastritis, duodenitis, colon polyps, diverticulosis, internal hemorrhoids. GI recommend EGD in 2 months and colonoscopy in 5 years. -She was doing well until abruptly she had severe abdominal pain in which a CT scan of the abdomen and pelvis done with did not show any perforation or obstruction. -She was treated per empirically with Creon and rifampin I GI. -She had a gastric emptying study done which showed gastroparesis. She is put on Reglan for this. -Patient pain resolved after avoiding certain types of food which are mostly fatty food. GIB- -Hemoglobin was stable to the hospital course. GI consulted. See results as above. No episodes of any GI bleed afterwards. Hypokalemia -Replenish as needed. Hypothyroidism- possible autoimmune related- - antiperoxidase elevated. - on further history -Patient was put on levothyroxine. Initially she said that she was on levothyroxine but when I interviewed her again she is that she was not aware of this. - needs TSH recheck as OP in 4-6 weeks and OP ffup with an manager golf Left LE edema- improved - negative for DVT - TEDs Pt Condition on Discharge: Good Discharge Disposition: Discharge Home Discharge Time: > 30 minutes ( ) Discharge Instructions DIET: Follow Instructions for: Low Fat Diet Activities you can perform: Regular-No Restrictions Follow up Referrals: Gastroenterology - 1 Week with Skyler Solis MD PCP Follow-up - 1 Week New Medications: Levothyroxine (Levothyroxine) 50 Mcg Tab 50 MCG PO DAILY for Thyroid, #30 TAB 0 Refills Pantoprazole (Protonix) 40 Mg Tab 40 MG PO DAILY for Ulcer Prevention, #30 TAB 0 Refills Hydrocodone/Acetaminophen (Hydrocodone-Acetamin 5-325 mg) 5 Mg-325 Mg Tablet 1 TAB PO Q6H PRN for moderate to severe pain, #20 TAB 0 Refills Metoclopramide (Metoclopramide) 10 Mg Tab 10 MG PO ACHS for gastroporesis for 30 Days, TAB 0 Refills Pancrelipase (Creon) 12,000-38,000-60,000 Units Cap 1 CAP PO TID for pancreas, #90 CAP 0 Refills Rifaximin (Xifaxan) 550 Mg Tab 550 MG PO BID for GI, #28 TAB 0 Refills Sucralfate Liq (Sucralfate Liq) 1 Gram/10 Ml Elvia 1 GM PO TIDAC for ulcer for 30 Days, ML 0 Refills Continued Medications: Gabapentin (Neurontin) 800 Mg Tab 800 MG PO QID, #90 TAB 0 Refills Midodrine (Midodrine) 10 Mg Tab 10 MG PO TID PRN for hypotention, #90 TAB 0 Refills Topiramate (Topamax) 100 Mg Tab 100 MG PO BID for Control Seizures, #60 TAB 0 Refills Discontinued Medications: Acetaminophen (Tylenol) 325 Mg Tab 650 MG PO Q6H PRN for PAIN SCALE 1 TO 4, #20 TAB 0 Refills Oxycodone (Oxycodone) 10 Mg Tab 10 MG PO [id number] PRN for PAIN SCALE 1 TO 10, TAB 0 Refills Propranolol (Propranolol) 60 Mg Tab 60 MG PO BID, #60 TAB 0 Refills Zolpidem (Ambien) 10 Mg Tab 10 MG PO HS PRN for SLEEP, TAB 0 Refills Jess Flor MD Mar 01, 2017 15:07
--- NOTE | 2017-03-01 15:31 | HHI.PR ---
Objective Vitals Vital Signs Date Time Temp Pulse Resp B/P (MAP) Pulse Ox O2 Delivery O2 Flow Rate FiO2 03/01/17 12:00 97.5 69 18 114/70 (85) 97 03/01/17 11:00 94 03/01/17 08:00 97.7 70 17 96/56 (69) 94 03/01/17 04:00 97.9 71 18 102/66 (78) 98 03/01/17 00:00 98.6 70 20 87/53 (64) 96 02/28/17 20:00 96.7 80 22 101/61 (74) 96 02/28/17 17:47 96 21 02/28/17 16:00 96.5 71 16 100/68 (79) 96 I/O 02/28/17 02/28/17 02/28/17 03/01/17 03/01/17 03/01/17 07:00 15:00 23:00 07:00 15:00 23:00 Intake Total 1610 ml 1231 ml 360 ml Balance 1610 ml 1231 ml 360 ml Intake Oral 360 ml 240 ml 360 ml IV Total 1250 ml 991 ml # Voids 3 3 3 # Bowel Movements 0 0 2 Result Diagram: 02/28/17 0743 02/28/17 0743 Objective Remarks GENERAL:in NAD SKIN: Warm and dry. HEAD: Normocephalic. EYES: No scleral icterus. No injection or drainage. NECK: Supple, trachea midline. No JVD or lymphadenopathy. CARDIOVASCULAR: Regular rate and rhythm without murmurs, gallops, or rubs. RESPIRATORY: Breath sounds equal bilaterally. No accessory muscle use. GASTROINTESTINAL: Initial abdominal exam was soft mild tenderness in the right upper quadrant area. Negative for any peritoneal signs. MUSCULOSKELETAL: No cyanosis, or edema. BACK: Nontender without obvious deformity. No CVA tenderness. Reexamination of abdominal exam when he minutes later. Patient is tearful. abdominal exam soft, nondistended, diffuse tenderness to palpation. Negative for any peritoneal signs. Patient is not guarding. A/P Problem List: (1) Intractable abdominal pain ICD Code: R10.9 - Unspecified abdominal pain (2) Edema of left lower extremity ICD Code: R60.0 - Localized edema Assessment and Plan 41 years old female with extensive GI history Small bowel obstruction- recent explore lap for obstruction-/cholecystectomy and bowel resection done History of gallstone pancreatitis -Status post EGD done on 02/27 showing gastric ulcer, gastritis, duodenitis, colon polyps, diverticulosis, internal hemorrhoids. GI recommend EGD in 2 months and colonoscopy in 5 years. -Patient was doing well and was going to be discharged since she had a bowel movement, tolerating oral intake, pain control by 20 minutes later she started complaining of severe abdominal pain. -There are no peritoneal signs, labs reviewed this morning which were relatively normal. Will get a stat KUB and CT scan the abdomen/pelvis. -Currently on rifampin and Creon by GI. GIB- - H and H stable. no further episodes elevated tumor markers- CEA - See treatment as above. HYpokalemia- corrected - Corrected. Hypothyroidism- possible autoimmune related- - antiperoxidase elevated. - on further history- states history of hypothyroidism on 50 mcg daily - currently on IV synthroid 75 mcg daily - change to po when diet started - needs TSH recheck as OP in 4-6 weeks and OP ffup with an senior staff psychologist Left LE edema- improved - negative for DVT - TEDs patient up and ambulating - no chemical prophylaxis with GIB Discharge Planning Due to increased abdominal pain stat CT scan of the abdomen/pelvis and KUB order. Pending results. Discussed case with patient's nurse. >35 minutes was spent with patient regards to patient's management. Jess Flor MD Mar 01, 2017 15:31
[2017-03-01] MEDS ORDERED: METOCLOPRAMIDE HCL 10 MG TAB PO SCH (17:00)
== END 2017-03-01 15:32 | disposition home or self-care (01) | DRG 384 ==
LOC: PHED 12:06 → PHEDA 15:47 → N07A 18:48
PROVIDERS: ADMIT Family Medicine; ATTEND Family Medicine
PROC: 0DB98ZX Excision of Duodenum, Via Natural or Artificial Opening Endoscopic, Diagnostic (ICD-10-PCS; 2017-02-27)
PROC: 0DB68ZX Excision of Stomach, Via Natural or Artificial Opening Endoscopic, Diagnostic (ICD-10-PCS; 2017-02-27)
PROC: 0DBP8ZX Excision of Rectum, Via Natural or Artificial Opening Endoscopic, Diagnostic (ICD-10-PCS; principal; 2017-02-27 15:25)
PROC: 0DJD8ZZ Inspection of Lower Intestinal Tract, Via Natural or Artificial Opening Endoscopic (ICD-10-PCS; 2017-02-27 15:25)
DX: K25.9 Gastric ulcer, unspecified as acute or chronic, without hemorrhage or perforation (principal); C16.9 Malignant neoplasm of stomach, unspecified; K56.609 Unspecified intestinal obstruction, unspecified as to partial versus complete obstruction; K31.84 Gastroparesis; E03.9 Hypothyroidism, unspecified; D63.8 Anemia in other chronic diseases classified elsewhere; E87.6 Hypokalemia; F41.9 Anxiety disorder, unspecified; K57.30 Diverticulosis of large intestine without perforation or abscess without bleeding; K29.70 Gastritis, unspecified, without bleeding; K29.80 Duodenitis without bleeding; K21.0 Gastro-esophageal reflux disease with esophagitis; Z95.0 Presence of cardiac pacemaker; M79.7 Fibromyalgia; Z83.71 Family history of colonic polyps; Z83.79 Family history of other diseases of the digestive system; M19.90 Unspecified osteoarthritis, unspecified site; J45.909 Unspecified asthma, uncomplicated; K64.8 Other hemorrhoids; K62.1 Rectal polyp; Z86.010 Personal history of colon polyps; R19.7 Diarrhea, unspecified; R97.8 Other abnormal tumor markers; R60.0 Localized edema
CPT/HCPCS: 71045; 74018; 74019; 74174; 74177; 74250; 76536; 78264; 80048; 80053; 80074; 81001; 82103; 82378; 82390; 82533; 82710; 82728; 82784; 82977; 83516; 83520; 83540; 83550; 83605; 83690; 84080; 84439; 84443; 84481; 84703; 85025; 85027; 85652; 86038; 86255; 86301; 86304; 86376; 86800; 87040; 87086; 87328; 87329; 87493; 87506; 88305; 88312; 93971; 96361; 96374; 96375; 96376; A9541; C9113; J0692; J1956; J2060; J2270; J2405; J2765; J3480; J7030; J7040; J7120; Q9963; Q9967